=== PATIENT | male | born 1945 | race Caucasian/White ===

== ENCOUNTER 2019-01-04 21:23 | Inpatient (IN) | payer OTHER, BC ==
[2019-01-04 21:51] VITALS: BMI 33.2
[2019-01-04] MEDS ORDERED: SODIUM CHLORIDE 1,000 ML IV SCH (22:15)
--- NOTE | 2019-01-04 22:29 | PDOC ---
Documentation entered by Corona Sosa SCRIBE, acting as scribe for Cheyanne Lowery MD. Cheyanne Lowery MD: This documentation has been prepared by the Ian le Nirvannie, SCRIBE, under my direction and personally reviewed by me in its entirety. I confirm that the documentation accurately reflects all work, treatment, procedures, and medical decision making performed by me. Attending Attestation - Resident Resident Name: Johana Mcgregor - ED Attending Attestation I have performed the following: I have examined & evaluated the patient, The case was reviewed & discussed with the resident, I agree w/resident's findings & plan - HPI HPI: 01/04/19 21:54 The patient is a 73 year old male, with a significant past medical history of HTN and prostate CA, who presents to the emergency department s/p episode of LOC. As per patient, shortly after having an alcoholic beverage and eating half of his meal he began to feel lightheaded and nauseous subsequently losing consciousness. Patients notes he was immediately responsive to verbal stimuli but, was diaphoretic upon awakening. He endorses a similar episode approximately a week ago at which time he did not lose consciousness. He denies any chest pain, shortness of breath, palpitations, headache, change in strength/ sensation, focal weakness, or urinary/bowel incontinence. Allergies: NKDA Primary Care Physician: Dr. Kaiser - Physicial Exam PE: 01/04/19 22:20 Well-nourished well-developed 73-year-old male brought in by ambulance after a witnessed syncopal episode Head no scalp lacerations Eyes pupils equal reactive light and extraocular muscles intact Neck supple lungs cta b/l cvs [id number] abd nontender skin no lacerations neuro axox3, motor strength 5/5,b/l psych appropriate 01/04/19 22:30 - Medical Decision Making 01/05/19 00:00 First troponin is negative EKG is normal sinus rhythm with no signs of any acute ischemia CBCs unremarkable Chemistries were reviewed and his renal function and electrolytes and LFTs are unremarkable CPK is unusually high at about 1922 Patient has not had any repeat symptoms but given the fact that this is his second syncopal episode in the last 2 weeks and he has no prior cardiac work-up he will be admitted to telemetry for further cardiac monitoring ,echo, cardiology consult
--- NOTE | 2019-01-04 22:50 | PDOC ---
History of Present Illness - General Chief Complaint: Syncope/Near Syncope Stated Complaint: SYNCOPE Time Seen by Provider: 01/04/19 21:44 - History of Present Illness Initial Comments: 01/04/19 22:36 HPI: 73 y/o M with hx of HTN and HLD presenting following witnessed syncopal event 2hrs ago. Patient reports taking both his AM and PM amlodipine (5mg) dose around 6:30pm before going to dinner because he forgot his AM dose. At dinner, he started feeling LH and nausea. He attempted to go outside to get fresh air but syncopized before making it outside. LOC lasted only a few seconds per the . There was no head trauma, incontinence or tongue laceration. Patient denies any BETANCUR, chest pain, palpitations, SOB prior to syncope. noted that patient landed on his arm and there was a mild tremor and he was diaphoretic. Of note, patient notes he felt similar symptoms 1 week ago. [place] LH and nausea during dinner, but symptoms self resolved prior to syncope. He also reports left knee gout and severe discomfort and is unsure if significant pain may have caused this PMHx: as noted above ROS: as noted SHx: Denies tobacco use; occasional alcohol use; no rec drugs Allergies: NKDA PCP: Dr Kaiser ROS: GENERAL/CONSTITUTIONAL: No fever or chills. No weakness. HEAD, EYES, EARS, NOSE AND THROAT: No change in vision. No ear pain or discharge. No sore throat. CARDIOVASCULAR: No chest pain or shortness of breath RESPIRATORY: No cough, wheezing, or hemoptysis. GASTROINTESTINAL: +nausea; no vomiting, diarrhea or constipation. GENITOURINARY: No dysuria, frequency, or change in urination. MUSCULOSKELETAL: No joint or muscle swelling or pain. No neck or back pain. SKIN: No rash NEUROLOGIC: +LOC, LH; No headache, vertigo, or change in strength/sensation. ENDOCRINE: No increased thirst. No abnormal weight change HEMATOLOGIC/LYMPHATIC: No anemia, easy bleeding, or history of blood clots. ALLERGIC/IMMUNOLOGIC: No hives or skin allergy. PE: GENERAL: Awake, alert, and fully oriented, no acute distress HEAD: No signs of trauma, normocephalic, atraumatic EYES: EOMI, PERRLA, sclera anicteric, conjunctiva clear ENT: Auricles normal inspection, hearing grossly normal, nares patent, oropharynx clear without exudates. Moist mucosa NECK: Normal ROM, no lymphadenopathy LUNGS: No increased work of breathing, symmetrical chest rise, clear to auscultation bilaterally, no wheezes, crackles or rhonchi HEART: Regular rate and rhythm, normal S1 and S2, no murmurs, peripheral pulses 2+ and equal bilaterally. ABDOMEN: Soft, nondistended, nontender, normoactive bowel sounds. No guarding, no rebound. No masses. No CVAT EXTREMITIES: Normal inspection, Normal range of motion, no edema. No clubbing or cyanosis. NEUROLOGICAL: Cranial nerves II through XII grossly intact. Normal speech, normal gait, no focal sensorimotor deficits SKIN: Warm, Dry, normal turgor, no rashes or lesions noted Past History - Past Medical History Allergies/Adverse Reactions: Allergies Allergy/AdvReac Type Severity Reaction Status Date / Time No Known Allergies Allergy Verified 10/24/14 11:45 Home Medications: Ambulatory Orders Aspirin [ASA -] 81 mg PO DAILY 10/24/14 Cholecalciferol (Vitamin D3) [Vitamin D3] 1,000 units PO DAILY 10/24/14 Clindamycin [Cleocin -] 600 mg PO Q8H #30 capsule 10/24/14 Colesevelam HCl [Welchol] 625 mg PO DAILY 10/24/14 Multivitamin [Poly-Vitamin] 1 each PO DAILY 10/24/14 [place]-3 Fatty Acids/Fish Oil [Fish Oil 1,000 mg Softgel] 1 each PO DAILY Omeprazole 20 mg PO DAILY 10/24/14 Pramipexole Di-HCl [Mirapex] 1 mg PO BID 10/24/14 Ramipril 10 mg PO DAILY 10/24/14 Vitamin E 400 unit PO DAILY 10/24/14 COPD: No HTN: Yes - Psycho Social/Smoking Cessation Hx Smoking History: Never smoked Hx Alcohol Use: No Drug/Substance Use Hx: No *Physical Exam - Vital Signs Last Vital Signs Temp Pulse Resp BP Pulse Ox 97.9 F 17 108/58 L 96 01/04/19 21:30 01/04/19 21:30 01/04/19 21:30 01/04/19 21:30 ED Treatment Course - LABORATORY CBC & Chemistry Diagram: 01/04/19 22:30 01/04/19 22:30 Medical Decision Making - Medical Decision Making 01/04/19 22:50 73 y/o M with hx of HTN and HLD presenting following witnessed syncopal event 2hrs ago associated with LH and nausea. VSS, AF. Pe unremarkable. DDx includes ACS, arrhythmia, lyte imbalance, CVA/TIA, infection, hypoglycemia -cbc, cmp, cardiac profile, ua, coags, lipid panel, ekg, cxr, CT head, -ivf -admit to telemetry unit for further workup of syncope and recent presyncope symptoms Discharge - Discharge Information Problems reviewed: Yes Clinical Impression/Diagnosis: Syncope Qualifiers: Syncope type: unspecified Qualified Code(s): R55 - Syncope and collapse Condition: Stable - Admission Yes - Follow up/Referral Referrals: Jacob Kaiser MD [Primary Care Provider] - - Patient Discharge Instructions - Post Discharge Activity
[2019-01-04 22:56] LABS: BASO % 0.5 % (0-2.0); HEMATOCRIT 43.2 % (35.4-49); HEMOGLOBIN 14.3 GM/dL (11.7-16.9); LYMPH % 13.7 % (8-40); MCH 28.9 pg (25.7-33.7); MCHC 33.1 g/dl (32.0-35.9); MEAN CELL VOLUME 87.2 fl (80-96); MEAN PLT VOLUME 7.8 fl (7.5-11.1); MONO % 7.9 % (3.8-10.2); NEUT % 76.9 % (42.8-82.8); PLATELET COUNT 232 K/MM3 (134-434); RBC 4.95 M/mm3 (4.00-5.60); RDW 14.1 % (11.9-15.9); WHITE BLOOD COUNT 6.3 K/mm3 (4.0-10.0)
[2019-01-04 22:58] LABS: INR 0.97 (0.83-1.09); PROTHROMBIN TIME (PATIENT) 11.5 SEC (9.7-13.0)
[2019-01-04 23:00] LABS: ACTIVATED PTT 26.9 SECONDS (25.2-36.5)
[2019-01-04 23:27] LABS: BLOOD UREA NITROGEN 23.9 mg/dL (7-18); CREATININE 1.5 mg/dL (0.55-1.3); LDL CHOLESTEROL (ONLY SJRH) 119 mg/dL (5-100); TRIGLYCERIDES 251 mg/dL (0-150)
[2019-01-04 23:28] LABS: ALBUMIN 4.1 g/dl (3.4-5.0); BILIRUBIN,TOTAL 0.9 mg/dL (0.2-1); CALCIUM 9.7 mg/dL (8.5-10.1); POTASSIUM 3.9 mmol/L (3.5-5.1); TOT PROT 7.6 g/dl (6.4-8.2)
--- NOTE | 2019-01-05 | PDOC ---
*Physical Exam - Vital Signs Last Vital Signs Temp Pulse Resp BP Pulse Ox 97.9 F 17 108/58 L 96 01/04/19 21:30 01/04/19 21:30 01/04/19 21:30 01/04/19 21:30 ED Treatment Course - LABORATORY CBC & Chemistry Diagram: 01/05/19 05:30 01/05/19 05:30 - ADDITIONAL ORDERS Additional order review: Laboratory Results 01/04/19 01/04/19 01/04/19 22:30 22:30 22:30 PT with INR INR PTT (Actin FS) Sodium Potassium Chloride Carbon Dioxide Anion Gap BUN Creatinine Est GFR (CKD-EPI)AfAm Est GFR (CKD-EPI)NonAf Random Glucose Calcium Total Bilirubin AST ALT Alkaline Phosphatase Creatine Kinase Troponin I Total Protein Albumin Triglycerides 251 H Cholesterol Total LDL Cholesterol 119 H HDL Cholesterol 51 Blood Type O POSITIVE Antibody Screen Negative 01/04/19 01/04/19 01/04/19 22:30 22:30 22:30 PT with INR 11.50 INR 0.97 PTT (Actin FS) 26.9 Sodium 136 Potassium 3.9 Chloride 102 Carbon Dioxide 24 Anion Gap 10 BUN 23.9 H Creatinine 1.5 H Est GFR (CKD-EPI)AfAm 53.52 Est GFR (CKD-EPI)NonAf 46.17 Random Glucose 84 Calcium 9.7 Total Bilirubin 0.9 AST 67 H ALT 37 Alkaline Phosphatase 41 L Creatine Kinase 1922 H Troponin I < 0.02 Total Protein 7.6 Albumin 4.1 Triglycerides Cholesterol 201 H Total LDL Cholesterol HDL Cholesterol Blood Type Antibody Screen 01/04/19 22:30 RBC 4.95 MCV 87.2 MCHC 33.1 RDW 14.1 MPV 7.8 Neutrophils % 76.9 Lymphocytes % 13.7 Monocytes % 7.9 Eosinophils % 1.0 Basophils % 0.5 Medical Decision Making - Medical Decision Making 01/04/19 23:59 signed out from noon team - f/u CXR - f/u CT head - f/u labs - Admit tele 01/05/19 02:03 Orthostatics Supine: 104/60, HR 61 Sit: 102/63, HR 61 Standin/63, HR 67 01/05/19 02:09 Endorsed Admitted tele-obs Discharge - Discharge Information Problems reviewed: Yes Clinical Impression/Diagnosis: Syncope Qualifiers: Syncope type: unspecified Qualified Code(s): R55 - Syncope and collapse Condition: Stable - Follow up/Referral - Patient Discharge Instructions - Post Discharge Activity
[2019-01-05 00:54] LABS: INR 1.01 (0.83-1.09); PROTHROMBIN TIME (PATIENT) 11.9 SEC (9.7-13.0)
[2019-01-05] MEDS ORDERED: ACETAMINOPHEN 325 MG TABLET (FP) PO PRN (03:33)
[2019-01-05 04:15] LABS: URINE APPEARANCE CLEAR; URINE BILIRUBIN NEGATIVE (NEGATIVE); URINE COLOR YELLOW; URINE GLUCOSE (UA) NEGATIVE (NEGATIVE); URINE KETONE NEGATIVE (NEGATIVE); URINE LEUK ESTERASE NEGATIVE (NEGATIVE); URINE NITRITE NEGATIVE (NEGATIVE); URINE PROTEIN NEGATIVE (NEGATIVE); URINE UROBILINOGEN 0.2 mg/dL (0.2-1.0)
--- NOTE | 2019-01-05 04:15 | PN ---
Teaching Attending Note Name of Resident: Bessie Cordero ATTENDING PHYSICIAN STATEMENT I saw and evaluated the patient. I reviewed the resident's note and discussed the case with the resident. I agree with the resident's findings and plan as documented. SUBJECTIVE: Patient is a 73 year old man with a PMH of HTN, HLD, ?Calf myopathy with chronic CPK elevation, and Prostate cancer who presents to the ER after an episode of syncope with LOC. As per patient, shortly after having an alcoholic beverage and eating half of his meal he began to feel lightheaded and nauseous subsequently losing consciousness. Reportedly took an extra dose of his antihypertensive medication (?amlodipine). Patients notes he was immediately responsive to verbal stimuli but, was diaphoretic upon awakening. He had a similar episode approximately a week ago at which time he did not lose consciousness. He denies any chest pain, shortness of breath, palpitations, headache, change in strength/sensation, focal weakness, urinary or bowel incontinence. Denies tobacco or illicit drug use. No sick contacts or recent travel. OBJECTIVE: Alert and not orthostatic Vital Signs Period Temp Pulse Resp BP Sys/[place] Pulse Ox Last 24 Hr 97 F-97.9 F 17 108/58 96-96 HEENT: No Jaundice, eye redness or discharge, PERRLA, EOMI. Normocephalic, atraumatic. External ears are normal and hearing is grossly intact. No nasal discharge. Neck: Supple, nontender. No palpable adenopathy or thyromegaly. No JVD Chest: Good effort. Clear to auscultation and percussion. Heart: Regular. No S3, rub or murmur Abdomen: Not distended, soft, nontender and no HSM. No rebound or guarding. Normal bowel sounds. Ext: Peripheral pulses intact. No leg edema. Skin: Warm and dry. No petechiae, rash or ecchymosis. Neuro: Alert. Oriented x3. CN 2-12 grossly intact. Sensation grossly intact in all four extremities and DTR are symmetric. Psych: Appropriate mood and affect. Good insight. Current Medications Generic Name Dose Route Start Last Admin Trade Name Freq PRN Reason Stop Dose Admin Acetaminophen 650 mg 01/05/19 03:33 Tylenol - PO Q6H PRN PAIN LEVEL 1-5 Heparin Sodium (Porcine) 5,000 unit 01/05/19 10:00 Heparin - SQ Q8H-IV [facility] Sodium Chloride 1,000 mls @ 42 mls/hr 01/04/19 22:15 01/04/19 22:39 Normal Saline - IV 42 mls/hr ASDIR [facility] Administration Home Medications Medication Instructions Recorded Aspirin [ASA -] 81 mg PO DAILY 10/24/14 Cholecalciferol (Vitamin D3) 1,000 units PO DAILY 10/24/14 [Vitamin D3] Clindamycin [Cleocin -] 600 mg PO Q8H #30 capsule 10/24/14 Colesevelam HCl [Welchol] 625 mg PO DAILY 10/24/14 Multivitamin [Poly-Vitamin] 1 each PO DAILY 10/24/14 [place]-3 Fatty Acids/Fish Oil [Fish 1 each PO DAILY 10/24/14 Oil 1,000 mg Softgel] Omeprazole 20 mg PO DAILY 10/24/14 Pramipexole Di-HCl [Mirapex] 1 mg PO BID 10/24/14 Ramipril 10 mg PO DAILY 10/24/14 Vitamin E 400 unit PO DAILY 10/24/14 Abnormal Lab Results 01/04/19 01/04/19 01/04/19 22:30 22:30 22:30 BUN 23.9 H Creatinine 1.5 H AST 67 H Alkaline Phosphatase 41 L Creatine Kinase 1922 H CK-MB (CK-2) 36.0 H Triglycerides 251 H Cholesterol 201 H Total LDL Cholesterol 119 H ASSESSMENT AND PLAN: 1. Syncope - Cause unclear, but may be related to "over dosing" on his antihypertensive medication. No acute abnormality on head CT. CXR shows increased perihilar interstitial marking. EKG is NSR with no significant ST-T wave changes. Will monitor on telemetry, get ECHO, urine toxicology, blood alcohol level, carotid doppler, brain MRI/MRA, Neurology and Cardiology consults. Will continue comprehensive care for all of patients comorbid conditions. 2. NICOLA and ?Rhabdomyolysis - Cause unclear. Says he has had chronic elevated CPK. Will hydrate gently, monitor urine output, serum calcium and phosphate. Will consult nephrology and avoid nephrotoxic agents such as NSAIDS, aminoglycosides, contrast dyes and certain Alternative medicine products. 3. Obesity Counseled on the risks associated with obesity. Will provide patient all the necessary assistance, counseling and positive reinforcement to facilitate weight loss. Consult pipeline inspector. 4. Hypertension - Hold antihypertensive drugs for now. Restart suitable outpatient antihypertensive drugs when clinically appropriate. Revise regimen to ensure [id number] excellent BP control and drapery counselor patient on the injurious effects of uncontrolled hypertension. Nonpharmacologic measures to control hypertension like weight loss, salt restriction and exercise discussed. Importance of adherence to treatment regimen and attainment of normotension emphasized. 5. DVT prophylaxis - Heparin 5000u sq tid. 6. Advance directives - Full code
--- NOTE | 2019-01-05 05:25 | HP ---
CHIEF COMPLAINT: syncope PCP: Dr Kaiser HISTORY OF PRESENT ILLNESS: 73 year old male with past medical history of hypertension and hyperlipidemia presented to the ED after a syncopal episode yesterday. According to the patient , he only had a cup of coffee and banana for breakfast, one can of coke at lunch with a yogurt without any water intake.Furthermore, he forgot to take his AM 5mg amlodipine and decided to take his AM and PM dose of amlodipine (10mg total) at 6:30 pm before going out to dinner with his . At the restaurant, patient felt nauseous and lightheaded, and syncopized before being able to step out for fresh air. Pt also experienced diaphoresis and tremors prior to the episode. Per , patient lost consciousness for a few seconds but did not experience any head trauma, incontinence, tongue biting or post-ictal state. Pt denies headache, dizziness, chest pain, palpitations, change in vision, shortness of breath prior to the episode. Of note, pt had a similar episode last week without syncope. Pt has never seen a electronic security technician. No family history of sudden cardiac , arrhythmias or structural heart disease. Pt further endorsed history of abnormal CPK from calf muscles with a baseline around [id number]. lastly, he reports left knee gout flare recently managed with indomethacin. ER course was notable for: (1) non orthostatic VS, unremarkable CBC, CMP with elevated BUN/Cr 23.9/1.5, CPK 1922 ( per pt chronically elevated from calf muscles) (2)Head CT negative, trop neg x1, lipid panel trig 251, chol 201, LDL 119, HDL 51 (3) NS Recent Travel: denies PAST MEDICAL HISTORY: as above PAST SURGICAL HISTORY: prostatectomy 2/2 cancer 9 yrs ago Social History: Smoking:denies Alcohol: 2-3 drinks a week Drugs: denies Allergies No Known Allergies Allergy (Verified 10/24/14 11:45) HOME MEDICATIONS: Home Medications Medication Instructions Recorded Aspirin [ASA -] 81 mg PO DAILY 10/24/14 Cholecalciferol (Vitamin D3) 1,000 units PO DAILY 10/24/14 [Vitamin D3] Clindamycin [Cleocin -] 600 mg PO Q8H #30 capsule 10/24/14 Colesevelam HCl [Welchol] 625 mg PO DAILY 10/24/14 Multivitamin [Poly-Vitamin] 1 each PO DAILY 10/24/14 [place]-3 Fatty Acids/Fish Oil [Fish 1 each PO DAILY 10/24/14 Oil 1,000 mg Softgel] Omeprazole 20 mg PO DAILY 10/24/14 Pramipexole Di-HCl [Mirapex] 1 mg PO BID 10/24/14 Ramipril 10 mg PO DAILY 10/24/14 Vitamin E 400 unit PO DAILY 10/24/14 REVIEW OF SYSTEMS CONSTITUTIONAL: diaphoresis Absent: fever, chills, generalized weakness, malaise, loss of appetite, weight change HEENT: Absent: rhinorrhea, nasal congestion, throat pain, throat swelling, difficulty swallowing, mouth swelling, ear pain, eye pain, visual changes CARDIOVASCULAR: syncope Absent: chest pain, palpitations, irregular heart rate, , peripheral edema RESPIRATORY: lightheadedness Absent: cough, shortness of breath, dyspnea with exertion, orthopnea, wheezing, stridor, hemoptysis GASTROINTESTINAL: nausea Absent: abdominal pain, abdominal distension, vomiting, diarrhea, constipation, melena, hematochezia GENITOURINARY: Absent: dysuria, frequency, urgency, hesitancy, hematuria, flank pain, genital pain MUSCULOSKELETAL: Absent: myalgia, arthralgia, joint swelling, back pain, neck pain SKIN: Absent: rash, itching, pallor HEMATOLOGIC/IMMUNOLOGIC: Absent: easy bleeding, easy bruising, lymphadenopathy, frequent infections ENDOCRINE: Absent: unexplained weight gain, unexplained weight loss, heat intolerance, cold intolerance NEUROLOGIC: Absent: headache, focal weakness or paresthesias, dizziness, unsteady gait, seizure, mental status changes, bladder or bowel incontinence PSYCHIATRIC: Absent: anxiety, depression, suicidal or homicidal ideation, hallucinations. PHYSICAL EXAMINATION Vital Signs - 24 hr 01/04/19 01/05/19 21:30 03:33 Temperature 97.9 F 98.1 F Pulse Rate [ 65 Apical] Respiratory 17 18 Rate Blood Pressure 108/58 L Blood Pressure 116/46 L [Right] O2 Sat by Pulse 96 97 Oximetry (%) GENERAL: Awake, alert, and fully oriented, in no acute distress. HEAD: Normal with no signs of trauma. EYES: Pupils equal, round and reactive to light, extraocular movements intact, sclera anicteric, conjunctiva clear. No lid lag. EARS, NOSE, THROAT: oropharynx clear without exudates. Moist mucous membranes. NECK: Normal range of motion, supple without lymphadenopathy, JVD, or masses. LUNGS: Breath sounds equal, clear to auscultation bilaterally. No wheezes, and no crackles. No accessory muscle use. HEART: Regular rate and rhythm, normal S1 and S2 without murmur, rub or gallop. ABDOMEN: Soft, nontender, not distended, normoactive bowel sounds, no guarding, no rebound, no masses. No hepatomegaly or splenomegaly. MUSCULOSKELETAL: Normal range of motion at all joints. No bony deformities or tenderness. No CVA tenderness. UPPER EXTREMITIES: 2+ pulses, warm, well-perfused. No cyanosis. No clubbing. No peripheral edema. LOWER EXTREMITIES: 2+ pulses, warm, well-perfused. No calf tenderness. No peripheral edema. NEUROLOGICAL: Cranial nerves II-XII intact. Normal speech. PSYCHIATRIC: Cooperative. Good eye contact. Appropriate mood and affect. SKIN: Warm, dry, normal turgor, no rashes or lesions noted, normal capillary refill. Laboratory Results - last 24 hr 01/04/19 01/04/19 01/04/19 22:30 22:30 22:30 WBC 6.3 RBC 4.95 Hgb 14.3 Hct 43.2 MCV 87.2 MCH 28.9 MCHC 33.1 RDW 14.1 Plt Count 232 MPV 7.8 Absolute Neuts (auto) 4.8 Neutrophils % 76.9 Lymphocytes % 13.7 Monocytes % 7.9 Eosinophils % 1.0 Basophils % 0.5 Nucleated RBC % 0 PT with INR 11.50 INR 0.97 PTT (Actin FS) 26.9 Sodium Potassium Chloride Carbon Dioxide Anion Gap BUN Creatinine Est GFR (CKD-EPI)AfAm Est GFR (CKD-EPI)NonAf Random Glucose Calcium Total Bilirubin AST ALT Alkaline Phosphatase Creatine Kinase 1922 H Creatine Kinase Index 1.8 CK-MB (CK-2) 36.0 H Troponin I < 0.02 Total Protein Albumin Triglycerides Cholesterol Total LDL Cholesterol HDL Cholesterol Urine Color Urine Appearance Urine pH Ur Specific [place] Urine Protein Urine Glucose (UA) Urine Ketones Urine Blood Urine Nitrite Urine Bilirubin Urine Urobilinogen Ur Leukocyte Esterase Blood Type Antibody Screen 01/04/19 01/04/19 01/04/19 22:30 22:30 22:30 WBC RBC Hgb Hct MCV MCH MCHC RDW Plt Count MPV Absolute Neuts (auto) Neutrophils % Lymphocytes % Monocytes % Eosinophils % Basophils % Nucleated RBC % PT with INR INR PTT (Actin FS) Sodium 136 Potassium 3.9 Chloride 102 Carbon Dioxide 24 Anion Gap 10 BUN 23.9 H Creatinine 1.5 H Est GFR (CKD-EPI)AfAm 53.52 Est GFR (CKD-EPI)NonAf 46.17 Random Glucose 84 Calcium 9.7 Total Bilirubin 0.9 AST 67 H ALT 37 Alkaline Phosphatase 41 L Creatine Kinase Creatine Kinase Index CK-MB (CK-2) Troponin I Total Protein 7.6 Albumin 4.1 Triglycerides 251 H Cholesterol 201 H Total LDL Cholesterol 119 H HDL Cholesterol 51 Urine Color Urine Appearance Urine pH Ur Specific [place] Urine Protein Urine Glucose (UA) Urine Ketones Urine Blood Urine Nitrite Urine Bilirubin Urine Urobilinogen Ur Leukocyte Esterase Blood Type Antibody Screen 01/04/19 01/05/19 01/05/19 22:30 00:28 03:50 WBC RBC Hgb Hct MCV MCH MCHC RDW Plt Count MPV Absolute Neuts (auto) Neutrophils % Lymphocytes % Monocytes % Eosinophils % Basophils % Nucleated RBC % PT with INR 11.90 INR 1.01 PTT (Actin FS) Sodium Potassium Chloride Carbon Dioxide Anion Gap BUN Creatinine Est GFR (CKD-EPI)AfAm Est GFR (CKD-EPI)NonAf Random Glucose Calcium Total Bilirubin AST ALT Alkaline Phosphatase Creatine Kinase Creatine Kinase Index CK-MB (CK-2) Troponin I Total Protein Albumin Triglycerides Cholesterol Total LDL Cholesterol HDL Cholesterol Urine Color Yellow Urine Appearance Clear Urine pH 5.0 Ur Specific [place] 1.016 Urine Protein Negative Urine Glucose (UA) Negative Urine Ketones Negative Urine Blood Negative Urine Nitrite Negative Urine Bilirubin Negative Urine Urobilinogen 0.2 Ur Leukocyte Esterase Negative Blood Type O POSITIVE Antibody Screen Negative ASSESSMENT/PLAN: 73 year old male with past medical history of hypertension and hyperlipidemia presented to the ED after a syncopal episode yesterday. Admitted for Syncope workup Syncope poss due to poor oral intake and double dose of norvasc? cannot r/o other cardiac/neuro etiologies admit to tele cardiac monitoring Negative orthostatics Supine: 104/60, HR 61 Sit: 102/63, HR 61 Standin/63, HR 67 EKG normal sinus rhythm no ST-T wave changes. repeat EKG to check for interval changes trop neg x1. pending repeat echocardiogram for cardiac function assessment cardio Dr Tony consulted as pt never been assess by cardiology lipid panel abnormal as noted above Carotid doppler US MRI of the brain if Neuro recommends Neuro Dr Childers consulted Fall precautions NS @100 cc/hr Utox and alcohol level NICOLA poss due to recent indomethacin use or increased in CPK BUN/Cr 23.9/ 1.5 UA negative CPK 1921. Pt endorse Pt receiving NS @100. F/u CPK in the morning cont adequate hydration to prevent further injury monitor urine output avoid nephrotoxic drugs HTN resume when appropriate and med rec HLD Avoid statins Pt had myositis after administration in the past chronic elevated CPK cont home Welchol once med rec FEN NS @ 100 salt controlled diet monitor lytes DVT hep subQ Visit type - Emergency Visit Emergency Visit: Yes ED Registration Date: 01/05/19 Care time: The patient presented to the Emergency Department on the above date and was hospitalized for further evaluation of their emergent condition. - New Patient This patient is new to me today: Yes Date on this admission: 01/05/19 - Critical Care Critical Care patient: No ATTENDING PHYSICIAN STATEMENT I saw and evaluated the patient. I reviewed the resident's note and discussed the case with the resident. I agree with the resident's findings and plan as documented. SUBJECTIVE: OBJECTIVE: ASSESSMENT AND PLAN:
[2019-01-05] MEDS ORDERED: SODIUM CHLORIDE 1,000 ML IV SCH (05:30)
[2019-01-05] MEDS ORDERED: HEPARIN NA (PORCINE) 5,000 UNITS/ML 1ML VIAL ONE (05:48)
[2019-01-05] MEDS ORDERED: HEPARIN NA (PORCINE) 5,000 UNITS/ML 1ML VIAL SQ SCH (06:00)
[2019-01-05 06:03] LABS: BASO % 0.6 % (0-2.0); EOS % 2.4 % (0-4.5); HEMATOCRIT 38.6 % (35.4-49); HEMOGLOBIN 13.1 GM/dL (11.7-16.9); LYMPH % 24.6 % (8-40); MCH 29.3 pg (25.7-33.7); MCHC 33.9 g/dl (32.0-35.9); MEAN CELL VOLUME 86.5 fl (80-96); MEAN PLT VOLUME 7.3 fl (7.5-11.1); MONO % 10.6 % (3.8-10.2); NEUT % 61.8 % (42.8-82.8); PLATELET COUNT 206 K/MM3 (134-434); RBC 4.46 M/mm3 (4.00-5.60); RDW 13.8 % (11.9-15.9); WHITE BLOOD COUNT 4.9 K/mm3 (4.0-10.0)
[2019-01-05 06:36] LABS: ALBUMIN 3.5 g/dl (3.4-5.0); ALK PHOS 36 U/L (45-117); ANION GAP 7 MMOL/L (8-16); BILIRUBIN,TOTAL 0.8 mg/dL (0.2-1); BLOOD UREA NITROGEN 23.6 mg/dL (7-18); CALCIUM 8.7 mg/dL (8.5-10.1); CHLORIDE 106 mmol/L (98-107); CO2 24 mmol/L (21-32); CREATININE 1.3 mg/dL (0.55-1.3); GLUCOSE,RANDOM 93 mg/dL (74-106); MAGNESIUM 2.2 mg/dL (1.8-2.4); POTASSIUM 3.8 mmol/L (3.5-5.1); SGOT/AST 48 U/L (15-37); SGPT/ALT 30 U/L (13-61); SODIUM 136 mmol/L (136-145); TOT PROT 6.4 g/dl (6.4-8.2)
[2019-01-05 07:00] LABS: COCAINE, UR NEGATIVE ng/ml (CUTOFF=300); METHADONE, UR NEGATIVE ng/ml (CUTOFF=300); OPIATES, URI NEGATIVE ng/ml (CUTOFF=300); PHENCYCLIDINE,URINE NEGATIVE ng/ml (CUTOFF=25); URINE AMPHETAMINES NEGATIVE ng/ml (CUTOFF=500); URINE BARBITURATES NEGATIVE ng/ml (CUTOFF=200); URINE BENZODIAZEPINES NEGATIVE ng/ml (CUTOFF=200)
--- NOTE | 2019-01-05 09:36 | CONSULT ---
Consult - text type - Consultation Consultation Note: Neurology CHIEF COMPLAINT: syncope PCP: Dr Kaiser HISTORY OF PRESENT ILLNESS: 73 year old male with past medical history of hypertension and hyperlipidemia presented to the ED after a syncopal episode the day prior to admission. According to the patient, he only had a cup of coffee and banana for breakfast, one can of coke at lunch with a yogurt without any water intake.Furthermore, he forgot to take his AM 5mg amlodipine and decided to take his AM dose at nighttime. Notes in chart indicate double dose at night but the patient informed me that he had only taken 5 mg dose at bedtimeand did not double up on the medication. Patient reportedly felt nauseous and lightheaded, and syncopized before being able to step out for fresh air. Pt also experienced diaphoresis and tremors prior to the episode. reportedly, patient lost consciousness for a few seconds but did not experience any head trauma, incontinence, tongue biting or post-ictal state. Pt denies headache, dizziness, chest pain, palpitations, change in vision, shortness of breath prior to the episode. Of note, pt had a similar episode last week without syncope. Pt has never seen a workplace rehabilitation officer. No family history of sudden cardiac , arrhythmias or structural heart disease. Pt further endorsed history of abnormal CPK from calf muscles with a baseline around [id number]. lastly, he reports left knee gout flare recently managed with indomethacin. CT head was completed and without any acute changes. Neurologically, without any focal deficits and reports that he is asymptomatic at this point and at baseline. Recent Travel: denies PAST MEDICAL HISTORY: as above PAST SURGICAL HISTORY: prostatectomy 2/2 cancer 9 yrs ago Social History: Smoking:denies Alcohol: 2-3 drinks a week Drugs: denies Family; HTN Allergies No Known Allergies Allergy (Verified 10/24/14 11:45) HOME MEDICATIONS: Home Medications Medication Instructions Recorded Aspirin [ASA -] 81 mg PO DAILY 10/24/14 Cholecalciferol (Vitamin D3) 1,000 units PO DAILY 10/24/14 [Vitamin D3] Clindamycin [Cleocin -] 600 mg PO Q8H #30 capsule 10/24/14 Colesevelam HCl [Welchol] 625 mg PO DAILY 10/24/14 Multivitamin [Poly-Vitamin] 1 each PO DAILY 10/24/14 [place]-3 Fatty Acids/Fish Oil [Fish 1 each PO DAILY 10/24/14 Oil 1,000 mg Softgel] Omeprazole 20 mg PO DAILY 10/24/14 Pramipexole Di-HCl [Mirapex] 1 mg PO BID 10/24/14 Ramipril 10 mg PO DAILY 10/24/14 Vitamin E 400 unit PO DAILY 10/24/14 REVIEW OF SYSTEMS CONSTITUTIONAL: diaphoresis Absent: fever, chills, generalized weakness, malaise, loss of appetite, weight change HEENT: Absent: rhinorrhea, nasal congestion, throat pain, throat swelling, difficulty swallowing, mouth swelling, ear pain, eye pain, visual changes CARDIOVASCULAR: syncope Absent: chest pain, palpitations, irregular heart rate, , peripheral edema RESPIRATORY: lightheadedness Absent: cough, shortness of breath, dyspnea with exertion, orthopnea, wheezing, stridor, hemoptysis GASTROINTESTINAL: nausea Absent: abdominal pain, abdominal distension, vomiting, diarrhea, constipation, melena, hematochezia GENITOURINARY: Absent: dysuria, frequency, urgency, hesitancy, hematuria, flank pain, genital pain MUSCULOSKELETAL: Absent: myalgia, arthralgia, joint swelling, back pain, neck pain SKIN: Absent: rash, itching, pallor HEMATOLOGIC/IMMUNOLOGIC: Absent: easy bleeding, easy bruising, lymphadenopathy, frequent infections ENDOCRINE: Absent: unexplained weight gain, unexplained weight loss, heat intolerance, cold intolerance NEUROLOGIC: Absent: headache, focal weakness or paresthesias, dizziness, unsteady gait, seizure, mental status changes, bladder or bowel incontinence PSYCHIATRIC: Absent: anxiety, depression, suicidal or homicidal ideation, hallucinations. PHYSICAL EXAMINATION Vital Signs Period Temp Pulse Resp BP Sys/Majano Pulse Ox Last 24 Hr 97 F-98.1 F 65-75 15-18 108-143/46-82 96-99 GENERAL: Awake, alert, and fully oriented, in no acute distress. HEAD: Normal with no signs of trauma. EYES: Pupils equal, round and reactive to light, extraocular movements intact, sclera anicteric, conjunctiva clear. No lid lag. EARS, NOSE, THROAT: oropharynx clear without exudates. Moist mucous membranes. NECK: Normal range of motion, supple without lymphadenopathy, JVD, or masses. LUNGS: Breath sounds equal, clear to auscultation bilaterally. No wheezes, and no crackles. No accessory muscle use. HEART: Regular rate and rhythm, normal S1 and S2 without murmur, rub or gallop. ABDOMEN: Soft, nontender, not distended, normoactive bowel sounds, no guarding, no rebound, no masses. No hepatomegaly or splenomegaly. MUSCULOSKELETAL: Normal range of motion at all joints. No bony deformities or tenderness. No CVA tenderness. UPPER EXTREMITIES: 2+ pulses, warm, well-perfused. No cyanosis. No clubbing. No peripheral edema. LOWER EXTREMITIES: 2+ pulses, warm, well-perfused. No calf tenderness. No peripheral edema. NEUROLOGICAL: Cranial nerves II-XII intact. Normal speech. strength equal and symmetric bilaterally in upper and lower extremities, sensory intact, finger to nose normal PSYCHIATRIC: Cooperative. Good eye contact. Appropriate mood and affect. SKIN: Warm, dry, normal turgor, no rashes or lesions noted, normal capillary refill. CBCD WBC 4.9 K/mm3 (4.0-10.0) 01/05/19 05:30 RBC 4.46 M/mm3 (4.00-5.60) 01/05/19 05:30 Hgb 13.1 GM/dL (11.7-16.9) 01/05/19 05:30 Hct 38.6 % (35.4-49) 01/05/19 05:30 MCV 86.5 fl (80-96) 01/05/19 05:30 MCHC 33.9 g/dl (32.0-35.9) 01/05/19 05:30 RDW 13.8 % (11.9-15.9) 01/05/19 05:30 Plt Count 206 K/MM3 (134-434) 01/05/19 05:30 MPV 7.3 fl (7.5-11.1) L 01/05/19 05:30 CMP Sodium 136 mmol/L (136-145) 01/05/19 05:30 Potassium 3.8 mmol/L (3.5-5.1) 01/05/19 05:30 Chloride 106 mmol/L (98-107) 01/05/19 05:30 Carbon Dioxide 24 mmol/L (21-32) 01/05/19 05:30 Anion Gap 7 MMOL/L (8-16) L 01/05/19 05:30 BUN 23.6 mg/dL (7-18) H 01/05/19 05:30 Creatinine 1.3 mg/dL (0.55-1.3) 01/05/19 05:30 Random Glucose 93 mg/dL (74-106) 01/05/19 05:30 Calcium 8.7 mg/dL (8.5-10.1) 01/05/19 05:30 Total Bilirubin 0.8 mg/dL (0.2-1) 01/05/19 05:30 AST 48 U/L (15-37) H 01/05/19 05:30 ALT 30 U/L (13-61) 01/05/19 05:30 Alkaline Phosphatase 36 U/L (45-117) L 01/05/19 05:30 Total Protein 6.4 g/dl (6.4-8.2) 01/05/19 05:30 Albumin 3.5 g/dl (3.4-5.0) 01/05/19 05:30 CARDIAC ENZYMES Creatine Kinase 1922 U/L (26-308) H 01/04/19 22:30 Troponin I < 0.02 ng/ml (0.00-0.05) 01/05/19 05:30 ASSESSMENT/PLAN: 73 year old male with past medical history of hypertension and hyperlipidemia presented to the ED after a syncopal episode the day prior to admission. According to the patient, he only had a cup of coffee and banana for breakfast, one can of coke at lunch with a yogurt without any water intake.Furthermore, he forgot to take his AM 5mg amlodipine and decided to take his AM dose at nighttime. Notes in chart indicate double dose at night but the patient informed me that he had only taken 5 mg dose at bedtimeand did not double up on the medication. Patient reportedly felt nauseous and lightheaded, and syncopized before being able to step out for fresh air. Pt also experienced diaphoresis and tremors prior to the episode. reportedly, patient lost consciousness for a few seconds but did not experience any head trauma, incontinence, tongue biting or post-ictal state. Pt denies headache, dizziness, chest pain, palpitations, change in vision, shortness of breath prior to the episode. Of note, pt had a similar episode last week without syncope. Pt has never seen a workplace rehabilitation officer. No family history of sudden cardiac , arrhythmias or structural heart disease. Pt further endorsed history of abnormal CPK from calf muscles with a baseline around [id number]. lastly, he reports left knee gout flare recently managed with indomethacin. CT head was completed and without any acute changes. Neurologically, without any focal deficits and reports that he is asymptomatic at this point and at baseline. Does not rrequire MRI of the brain or further imaging at this time, completed carotid Dopplers this a.m. and should follow-up results. Cardiology eval and optimization, monitor blood pressure and maintain normotensive range. Monitor lipid profile and maintain normal LDL. Adequate hydration recommended.
--- NOTE | 2019-01-05 09:48 | EKG ---
Test Reason : Blood Pressure : / mmHG Vent. Rate : 061 BPM Atrial Rate : 061 BPM P-R Int : 160 ms QRS Dur : 094 ms QT Int : 440 ms P-R-T Axes : 051 046 066 degrees QTc Int : 442 ms NORMAL SINUS RHYTHM NORMAL ECG WHEN COMPARED WITH ECG OF 04-JAN-2019 21:41, NO SIGNIFICANT CHANGE WAS FOUND Confirmed by MD CANDACE, AMPARO ([id number]) on 01/05/2019 9:48:36 AM Referred By: Confirmed By:AMPARO MARIA MD
--- NOTE | 2019-01-05 09:52 | EKG ---
Test Reason : Blood Pressure : / mmHG Vent. Rate : 074 BPM Atrial Rate : 074 BPM P-R Int : 166 ms QRS Dur : 088 ms QT Int : 394 ms P-R-T Axes : 026 043 055 degrees QTc Int : 437 ms POOR DATA QUALITY, INTERPRETATION MAY BE ADVERSELY AFFECTED NORMAL SINUS RHYTHM NORMAL ECG NO PREVIOUS ECGS AVAILABLE Confirmed by MD CANDACE, AMPARO ([id number]) on 01/05/2019 9:52:14 AM Referred By: Confirmed By:AMPARO MARIA MD
[2019-01-05] MEDS ORDERED: amLODIPine BESYLATE 5 MG TABLET (FP) PO SCH (10:00)
[2019-01-05] MEDS ORDERED: CHOLECALCIFEROL (VIT D3) 1,000 UNIT (25 MCG) TABLET PO SCH (10:00)
[2019-01-05] MEDS ORDERED: ASPIRIN 81 MG CHEWABLE TABLETS PO SCH (10:00)
[2019-01-05] MEDS ORDERED: ALLOPURINOL 300 MG TABLET (FP) PO SCH (10:00)
[2019-01-05] MEDS ORDERED: ASPIRIN 81 MG CHEWABLE TABLETS ONE (10:08)
[2019-01-05] MEDS ORDERED: amLODIPine BESYLATE 5 MG TABLET (FP) ONE (10:08)
[2019-01-05] MEDS ORDERED: ALLOPURINOL 100 MG TABLET (FP) ONE (10:10)
--- NOTE | 2019-01-05 10:44 | ECHO ---
Version: 1 Name: RITU RÍOS Exam: Adult Echocardiogram Study Date: 01/05/2019, 9:42 AM Age: 73 Years MMode/2D Measurements & Calculations IVSd: 0.98 cm LVIDs: 2.45 cm LVIDd: 4.4 cm LVPWd: 0.98 cm LAV (MOD-bp): 49.5 ml LVOT diam: 1.98 cm Ao root diam: 3.1 cm LA dimension: 3.3 cm Doppler Measurements & Calculations MV E max cristobal: 74.7 cm/sec Med E/e': 11.4 MV A max cristobal: 74.2 cm/sec Med Peak E' Cristobal: 6.5 cm/sec MV E/A: 1.01 Lat E/e': 8.4 Lat Peak E' Cristobal: 8.9 cm/sec Ao max P.5 mmHg Ao V2 max: 137.2 cm/sec AI P1/2t: 654.9 msec TR max cristobal: 274.9 cm/sec TR max P.2 mmHg Left Ventricle The left ventricular size, thickness and function are normal. Ejection Fraction = 65%. The transmitr al spectral Doppler flow pattern is normal for age. Right Ventricle The right ventricle is normal in size and function. Atria Normal left and right atrial size and function. Mitral Valve The mitral valve is normal in structure and function. There is trace mitral regurgitation. Tricuspid Valve The tricuspid valve is normal in structure and function. There is trace tricuspid regurgitation. Aortic Valve The aortic valve is normal in structure and function. Mild aortic regurgitation. Pulmonic Valve The pulmonic valve is not well seen, but is grossly normal. Mild pulmonic valvular regurgitation. Great Vessels The aortic root is normal size. Normal aortic arch, descending and ascending aorta. Pericardium/Pleura There is no pericardial effusion. Summary Statements The left ventricular size, thickness and function are normal Ejection Fraction = 65%. The transmitral spectral Doppler flow pattern is normal for age. The right ventricle is normal in size and function. Normal left and right atrial size and function. The mitral valve is normal in structure and function. There is trace mitral regurgitation. The tricuspid valve is normal in structure and function. There is trace tricuspid regurgitation. The aortic valve is normal in structure and function. Mild aortic regurgitation. The pulmonic valve is not well seen, but is grossly normal. Mild pulmonic valvular regurgitation. The aortic root is normal size. Normal aortic arch, descending and ascending aorta There is no pericardial effusion. Gio Chavez 01/05/2019, 10:44 AM Ordering Physician: Bessie Cordero Performed By: Sujata Scott
[2019-01-05 11:53] VITALS: BP 136/78; PULSE 67; TEMP 97.2
--- NOTE | 2019-01-05 13:31 | PN ---
Teaching Attending Note Name of Resident: Amna Blank ATTENDING PHYSICIAN STATEMENT I saw and evaluated the patient. I reviewed the resident's note and discussed the case with the resident. I agree with the resident's findings and plan as documented with exceptions below. SUBJECTIVE: Patient seen and examined, no complaints, doing well, eager to go home. OBJECTIVE: Vital Signs Period Temp Pulse Resp BP Sys/Majano Pulse Ox Last 24 Hr 97 F-98.1 F 65-75 15-18 108-143/46-82 96-99 Intake & Output 01/02/19 01/03/19 01/04/19 01/05/19 23:59 23:59 23:59 23:59 Weight 206 lb 206 lb General: sitting in bed, no acute distress neck: soft supple, no carotid bruit appreciated Abdomen:Soft, obese, NT Extremities: no edema Neuro: AAOx3, ambulating freely, no gait abnormalities, EOMI, PERRL, facial symmetry, tongue midline, speech normal cranial nerves II-XII intact Home Medications Medication Instructions Recorded Aspirin [ASA -] 81 mg PO DAILY 10/24/14 Cholecalciferol (Vitamin D3) 1,000 units PO DAILY 10/24/14 [Vitamin D3] Colesevelam HCl [Welchol] 625 mg PO DAILY 10/24/14 Multivitamin [Poly-Vitamin] 1 each PO DAILY 10/24/14 [place]-3 Fatty Acids/Fish Oil [Fish 1 each PO DAILY 10/24/14 Oil 1,000 mg Softgel] Omeprazole 20 mg PO DAILY 10/24/14 Pramipexole Di-HCl [Mirapex] 1 mg PO TID 10/24/14 Vitamin E 400 unit PO DAILY 10/24/14 Allopurinol 300 mg PO DAILY 01/05/19 Amlodipine Besylate 5 mg PO DAILY 01/05/19 Active Medications Acetaminophen (Tylenol -) 650 mg PO Q6H PRN PRN Reason: PAIN LEVEL 1-5 Allopurinol (Zyloprim -) 300 mg PO DAILY [facility] Last Admin: 01/05/19 10:22 Dose: 300 mg Amlodipine Besylate (Norvasc -) 5 mg PO DAILY [facility] Last Admin: 01/05/19 10:22 Dose: 5 mg Aspirin (Asa -) 81 mg PO DAILY [facility] Last Admin: 01/05/19 10:22 Dose: 81 mg Atorvastatin Calcium (Lipitor -) 20 mg PO HS [facility] Cholecalciferol (Vitamin D3 -) 1,000 unit PO DAILY [facility] Heparin Sodium (Porcine) (Heparin -) 5,000 unit SQ TID [facility] Last Admin: 01/05/19 05:53 Dose: 5,000 unit Laboratory Results - last 24 hr 01/04/19 01/04/19 01/04/19 22:30 22:30 22:30 WBC 6.3 RBC 4.95 Hgb 14.3 Hct 43.2 MCV 87.2 MCH 28.9 MCHC 33.1 RDW 14.1 Plt Count 232 MPV 7.8 Absolute Neuts (auto) 4.8 Neutrophils % 76.9 Lymphocytes % 13.7 Monocytes % 7.9 Eosinophils % 1.0 Basophils % 0.5 Nucleated RBC % 0 PT with INR 11.50 INR 0.97 PTT (Actin FS) 26.9 Sodium Potassium Chloride Carbon Dioxide Anion Gap BUN Creatinine Est GFR (CKD-EPI)AfAm Est GFR (CKD-EPI)NonAf Random Glucose Hemoglobin A1c % Calcium Phosphorus Magnesium Total Bilirubin AST ALT Alkaline Phosphatase Creatine Kinase 1922 H Creatine Kinase Index 1.8 CK-MB (CK-2) 36.0 H Troponin I < 0.02 Total Protein Albumin Triglycerides Cholesterol Total LDL Cholesterol HDL Cholesterol TSH Urine Color Urine Appearance Urine pH Ur Specific [place] Urine Protein Urine Glucose (UA) Urine Ketones Urine Blood Urine Nitrite Urine Bilirubin Urine Urobilinogen Ur Leukocyte Esterase Opiates Screen Methadone Screen Barbiturate Screen Phencyclidine Screen Ur Amphetamines Screen MDMA (Ecstasy) Screen Benzodiazepines Screen Cocaine Screen U Marijuana (THC) Screen Alcohol, Quantitative Blood Type Antibody Screen 01/04/19 01/04/19 01/04/19 22:30 22:30 22:30 WBC RBC Hgb Hct MCV MCH MCHC RDW Plt Count MPV Absolute Neuts (auto) Neutrophils % Lymphocytes % Monocytes % Eosinophils % Basophils % Nucleated RBC % PT with INR INR PTT (Actin FS) Sodium 136 Potassium 3.9 Chloride 102 Carbon Dioxide 24 Anion Gap 10 BUN 23.9 H Creatinine 1.5 H Est GFR (CKD-EPI)AfAm 53.52 Est GFR (CKD-EPI)NonAf 46.17 Random Glucose 84 Hemoglobin A1c % Calcium 9.7 Phosphorus Magnesium Total Bilirubin 0.9 AST 67 H ALT 37 Alkaline Phosphatase 41 L Creatine Kinase Creatine Kinase Index CK-MB (CK-2) Troponin I Total Protein 7.6 Albumin 4.1 Triglycerides 251 H Cholesterol 201 H Total LDL Cholesterol 119 H HDL Cholesterol 51 TSH Urine Color Urine Appearance Urine pH Ur Specific [place] Urine Protein Urine Glucose (UA) Urine Ketones Urine Blood Urine Nitrite Urine Bilirubin Urine Urobilinogen Ur Leukocyte Esterase Opiates Screen Methadone Screen Barbiturate Screen Phencyclidine Screen Ur Amphetamines Screen MDMA (Ecstasy) Screen Benzodiazepines Screen Cocaine Screen U Marijuana (THC) Screen Alcohol, Quantitative Blood Type Antibody Screen 01/04/19 01/05/19 01/05/19 22:30 00:28 03:50 WBC RBC Hgb Hct MCV MCH MCHC RDW Plt Count MPV Absolute Neuts (auto) Neutrophils % Lymphocytes % Monocytes % Eosinophils % Basophils % Nucleated RBC % PT with INR 11.90 INR 1.01 PTT (Actin FS) Sodium Potassium Chloride Carbon Dioxide Anion Gap BUN Creatinine Est GFR (CKD-EPI)AfAm Est GFR (CKD-EPI)NonAf Random Glucose Hemoglobin A1c % Calcium Phosphorus Magnesium Total Bilirubin AST ALT Alkaline Phosphatase Creatine Kinase Creatine Kinase Index CK-MB (CK-2) Troponin I Total Protein Albumin Triglycerides Cholesterol Total LDL Cholesterol HDL Cholesterol TSH Urine Color Yellow Urine Appearance Clear Urine pH 5.0 Ur Specific [place] 1.016 Urine Protein Negative Urine Glucose (UA) Negative Urine Ketones Negative Urine Blood Negative Urine Nitrite Negative Urine Bilirubin Negative Urine Urobilinogen 0.2 Ur Leukocyte Esterase Negative Opiates Screen Methadone Screen Barbiturate Screen Phencyclidine Screen Ur Amphetamines Screen MDMA (Ecstasy) Screen Benzodiazepines Screen Cocaine Screen U Marijuana (THC) Screen Alcohol, Quantitative Blood Type O POSITIVE Antibody Screen Negative 01/05/19 01/05/19 01/05/19 05:30 05:30 05:30 WBC 4.9 RBC 4.46 Hgb 13.1 Hct 38.6 MCV 86.5 MCH 29.3 MCHC 33.9 RDW 13.8 Plt Count 206 MPV 7.3 L Absolute Neuts (auto) 3.0 Neutrophils % 61.8 Lymphocytes % 24.6 D Monocytes % 10.6 H Eosinophils % 2.4 D Basophils % 0.6 Nucleated RBC % 0 PT with INR INR PTT (Actin FS) Sodium 136 Potassium 3.8 Chloride 106 Carbon Dioxide 24 Anion Gap 7 L BUN 23.6 H Creatinine 1.3 Est GFR (CKD-EPI)AfAm 63.62 Est GFR (CKD-EPI)NonAf 54.90 Random Glucose 93 Hemoglobin A1c % 5.6 Calcium 8.7 Phosphorus 4.0 Magnesium 2.2 Total Bilirubin 0.8 AST 48 H ALT 30 Alkaline Phosphatase 36 L Creatine Kinase 1436 H Creatine Kinase Index 1.8 CK-MB (CK-2) 26.0 H Troponin I < 0.02 Total Protein 6.4 Albumin 3.5 Triglycerides Cholesterol Total LDL Cholesterol HDL Cholesterol TSH 2.15 Urine Color Urine Appearance Urine pH Ur Specific [place] Urine Protein Urine Glucose (UA) Urine Ketones Urine Blood Urine Nitrite Urine Bilirubin Urine Urobilinogen Ur Leukocyte Esterase Opiates Screen Methadone Screen Barbiturate Screen Phencyclidine Screen Ur Amphetamines Screen MDMA (Ecstasy) Screen Benzodiazepines Screen Cocaine Screen U Marijuana (THC) Screen Alcohol, Quantitative Blood Type Antibody Screen 01/05/19 01/05/19 05:30 06:07 WBC RBC Hgb Hct MCV MCH MCHC RDW Plt Count MPV Absolute Neuts (auto) Neutrophils % Lymphocytes % Monocytes % Eosinophils % Basophils % Nucleated RBC % PT with INR INR PTT (Actin FS) Sodium Potassium Chloride Carbon Dioxide Anion Gap BUN Creatinine Est GFR (CKD-EPI)AfAm Est GFR (CKD-EPI)NonAf Random Glucose Hemoglobin A1c % Calcium Phosphorus Magnesium Total Bilirubin AST ALT Alkaline Phosphatase Creatine Kinase Creatine Kinase Index CK-MB (CK-2) Troponin I Total Protein Albumin Triglycerides Cholesterol Total LDL Cholesterol HDL Cholesterol TSH Urine Color Urine Appearance Urine pH Ur Specific [place] Urine Protein Urine Glucose (UA) Urine Ketones Urine Blood Urine Nitrite Urine Bilirubin Urine Urobilinogen Ur Leukocyte Esterase Opiates Screen Negative Methadone Screen Negative Barbiturate Screen Negative Phencyclidine Screen Negative Ur Amphetamines Screen Negative MDMA (Ecstasy) Screen Negative Benzodiazepines Screen Negative Cocaine Screen Negative U Marijuana (THC) Screen Negative Alcohol, Quantitative < 3.0 Blood Type Antibody Screen CT head/2D echo/Carotid duplex results noted ASSESSMENT AND PLAN: 73 yom with PMHx of HTN, HLD, admitted with syncope with prodrome, in the setting of poor oral intake, being outdoors all da -Syncope, suspect vasovagal compounded hypovolumia, as evident by poor oral intake/being outdoors all day/NICOLA -HTN -HLD -Chronic elevated CPK Plan: Asymptomatic, renal function improved Neurology input noted. 2D echo/carotid duplex with no acute concerns. BP stable, patient advised adequate hydration, to hold Lisinopril/HCTZ, home BP and outpatient PCP follow up for monitoring renal function/cardiology referral Continue follow up with Dr. Nathan Not on statin given chronically elevated CPK dc home today with outpatient follow up as above Plan discussed with patient and at bedside in detail, all questions answered.
--- NOTE | 2019-01-05 14:41 | DS ---
Physical Exam: SUBJECTIVE: Patient seen and examined. No acute events overnight. He denies any dizziness, lightheadedness or nausea. Pt is feeling well and denies and pain or symptoms. OBJECTIVE: Vital Signs Period Temp Pulse Resp BP Sys/Majano Pulse Ox Last 24 Hr 97 F-98.1 F 65-75 15-18 108-143/46-82 96-99 PHYSICAL EXAM GENERAL: The patient is awake, alert, and fully oriented, in no acute distress. HEAD: Normal with no signs of trauma. EYES: PERRL, extraocular movements intact, sclera anicteric, conjunctiva clear. ENT: Ears normal, nares patent, oropharynx clear without exudates, moist mucous membranes. NECK: Trachea midline, full range of motion, supple. LUNGS: Breath sounds equal, clear to auscultation bilaterally, no wheezes, no crackles, no accessory muscle use. HEART: Regular rate and rhythm, S1, S2 without murmur, rub or gallop. ABDOMEN: Soft, nontender, nondistended, normoactive bowel sounds, no guarding, no rebound, no hepatosplenomegaly, no masses. EXTREMITIES: 2+ pulses, warm, well-perfused, no edema. NEUROLOGICAL: Cranial nerves II through XII grossly intact. Normal speech, gait not observed. PSYCH: Normal mood, normal affect. SKIN: Warm, dry, normal turgor, no rashes or lesions noted. LABS Laboratory Results - last 24 hr CBC, BMP 01/05/19 05:30 01/05/19 05:30 HOSPITAL COURSE: Date of Admission:01/05/19 Mr. John is a 73 year old male with PMH of HTN, HLD, and gout and presented to the ED after a syncopal episode yesterday. He was admitted for syncopal workup. Orthostatics were negative. CT head was neg for any acute pathology. Echo showed normal size and function, EF: 65%. Carotid doppler was negative for any hemodynamically significant stenoses. Pt was monitored on tele with no acute events. Neurology was consulted and does not recommend any further intervention at this time. Syncope was likely vasovagal compounded by hypovolemia, as evident by poor oral intake and being outside all day prior to arrival. Pt's vitals are stable and he is clinically stable to be discharged home with outpatient follow up. Date of Discharge: 01/05/19 Minutes to complete discharge: 45 Discharge Summary Problems reviewed: Yes Reason For Visit: SYNCOPE Condition: Stable - Instructions Diet, Activity, Other Instructions: Your visit You were admitted to the hospital because you had an episode of lightheadedness. Several lab tests and imaging were done and did not reveal any active disease. You were also seen by neurology and cardiology. This episode of lightheadedness was likely because of dehydration. It is important to eat a healthy diet and drink plenty of water. You were also noted to have abnormal kidney function on admission. You were given IV fluids, and your blood pressure medications, Lisinopril and Hydrochlorothiazide were held. Your kidney function improved. Please stop taking these medications at this time, until you see your primary care doctor when to resume it. Medications Please take note on the following changes to your medications: 1. Please STOP taking your blood pressure medications, Lisinopril and Hydrochlorothiazide until you see your primary care doctor. Please continue your other home medications as prescribed. Follow up Please follow up with your primary care doctor within 1 week. Please discuss with your doctor for outpatient referral to a twister doffer. Please follow up with your neurologist (Dr. Nathan) within 2 weeks. Blood work to check kidneys (BMP) in 1 week with your doctor Instructions: Advise home BP monitoring daily and maintain a diary. Notify Your doctor if SBP (upper BP reading) persistently > 140 or DBP (lower BP reading) >90, please notify your doctor as your BP medication (lisinopril/HCTZ) may need to be resumed if kidney function continues to stay normal. Avoid sudden changes in position Maintain adequate hydration Recommend avoid driving till next doctor visit. Discuss with your doctor and neurologist about starting a cholesterol medication Additional info Please call 911 or go to the Emergency Department if with any fevers, chills, headache, dizziness, chest pain, shortness of breath, abdominal pain, diarrhea or with any new concerns. Referrals: Jacob Kaiser MD [Primary Care Provider] - Freedom Nathan MD [Staff Physician] - Pk Vaz MD [Staff Physician] - Disposition: HOME - Home Medications Comprehensive Discharge Medication List: Ambulatory Orders Aspirin [ASA -] 81 mg PO DAILY 10/24/14 Cholecalciferol (Vitamin D3) [Vitamin D3] 1,000 units PO DAILY 10/24/14 Colesevelam HCl [Welchol] 625 mg PO DAILY 10/24/14 Multivitamin [Poly-Vitamin] 1 each PO DAILY 10/24/14 Kirkwood-3 Fatty Acids/Fish Oil [Fish Oil 1,000 mg Softgel] 1 each PO DAILY Omeprazole 20 mg PO DAILY 10/24/14 Pramipexole Di-HCl [Mirapex] 1 mg PO TID 10/24/14 Vitamin E 400 unit PO DAILY 10/24/14 Allopurinol 300 mg PO DAILY 01/05/19 Amlodipine Besylate 5 mg PO DAILY 01/05/19 This patient is new to me today: Yes Date on this admission: 01/05/19 Emergency Visit: Yes ED Registration Date: 01/05/19 Care time: The patient presented to the Emergency Department on the above date and was hospitalized for further evaluation of their emergent condition. Critical Care patient: No - Discharge Referral Referred to [id number] No ATTENDING PHYSICIAN STATEMENT I saw and evaluated the patient. I reviewed the resident's note and discussed the case with the resident. I agree with the resident's findings and plan as documented. SUBJECTIVE: OBJECTIVE: ASSESSMENT AND PLAN:
[2019-01-05] MEDS ORDERED: ATORVASTATIN CA 20 MG TABLET (FP) PO SCH (22:00)
== END 2019-01-05 14:10 | disposition home or self-care (01) | DRG 312 ==
LOC: JER 21:23 → JERBED 01-05 00:43 → OBSVTOIN 01-05 03:34
PROVIDERS: ADMIT Internal Medicine; ATTEND Hospitalist
DX: R55 Syncope and collapse (principal); N17.9 Acute kidney failure, unspecified; I10 Essential (primary) hypertension; E78.5 Hyperlipidemia, unspecified; E86.1 Hypovolemia; M10.9 Gout, unspecified; E66.9 Obesity, unspecified; Z68.33 Body mass index [BMI] 33.0-33.9, adult; Z85.46 Personal history of malignant neoplasm of prostate
CPT/HCPCS: 36415; 70450-TC; 71046-TC-FY; 80053; 80307; 81003; 82465; 82550; 82553; 83036; 83718; 83721; 83735; 84100; 84443; 84478; 84484; 85025; 85610; 85730; 86850; 86900; 86901; 93005; 93010; 93306-TC; 93880-TC; 99285-25; G0378; J1644; J7030

== ENCOUNTER 2021-06-27 04:21 | Day surgery (SDC) | payer OTHER, BC ==
[2021-06-26 13:27] VITALS: BMI 33.7
[2021-06-27] MEDS ORDERED: MIDAZOLAM HCL 2 MG/2 ML SINGLE DOSE VIAL ONE ×3 (11:09→11:26)
[2021-06-27] MEDS ORDERED: LIDOCAINE HCL/PF 2% SDV 5ML VIAL ONE (11:09)
[2021-06-27] MEDS ORDERED: PROPOFOL 20 ML ONE ×2 (11:09→12:03)
[2021-06-27] MEDS ORDERED: BUPIVACAINE HCL/PF 0.5% (5MG/ML) 10 ML VIAL ONE ×2 (11:18→11:19)
[2021-06-27] MEDS ORDERED: DEXAMETHASONE SOD PHOSPHATE 10 MG/1 ML VIAL ONE (11:19)
[2021-06-27] MEDS ORDERED: SODIUM CHLORIDE 0.9% P/F 10 ML VIAL IJ ONE (11:20)
[2021-06-27] MEDS ORDERED: ceFAZolin SODIUM 1 GM VIAL IVPB ONE (11:48)
[2021-06-27] MEDS ORDERED: ceFAZolin SODIUM 1 GM VIAL ONE (11:52)
[2021-06-27] MEDS ORDERED: DEXAMETHASONE SOD PHOSPHATE 4 MG/1 ML VIAL ONE (11:52)
[2021-06-27 14:47] VITALS: TEMP 97.6
[2021-06-27] MEDS ORDERED: oxyCODONE HCL 5 MG TABLET PO ONE (16:31)
[2021-06-27] MEDS ORDERED: oxyCODONE HCL 10 MG SUSTAINED ACTING TABLET ONE (16:34)
[2021-06-27 18:27] VITALS: BP 129/70; PULSE 71
== END 2021-06-27 17:43 | disposition home or self-care (01) ==
LOC: JASU-SURG 04:21
PROVIDERS: ATTEND Orthopaedic Surgery
PROC: 0LMM0ZZ Reattachment of Left Upper Leg Tendon, Open Approach (ICD-10-PCS; principal; 2021-06-27 10:45)
DX: S76.112A Strain of left quadriceps muscle, fascia and tendon, initial encounter (principal); X58.XXXA Exposure to other specified factors, initial encounter; Y93.9 Activity, unspecified; Y92.9 Unspecified place or not applicable; Y99.9 Unspecified external cause status
CPT/HCPCS: 94760; J1100

== ENCOUNTER 2022-12-31 04:29 | Day surgery (SDC) | payer OTHER, BC ==
[2022-12-30 15:50] VITALS: BMI 31.3
[~2022-12-31 04:29] MED LIST: DEXAMETHASONE SOD PHOSPHATE 10 MG/1 ML VIAL IM ONE; IOHEXOL 180 MG/1 ML ML IJ ONE; LIDOCAINE HCL 1% PRESERVATIVE FREE - 30ML VIAL IJ ONE
[2022-12-31] MEDS ORDERED: DEXAMETHASONE SOD PHOSPHATE 4 MG/1 ML VIAL ONE (07:20)
[2022-12-31] MEDS ORDERED: DEXAMETHASONE SOD PHOSPHATE 10 MG/1 ML VIAL ONE (07:20)
[2022-12-31] MEDS ORDERED: ACETAMINOPHEN 500 MG TABLET (FP) PO PRN (08:55)
[2022-12-31 10:43] VITALS: RESP 20
[2022-12-31] MEDS ORDERED: LIDOCAINE HCL 1% PRESERVATIVE FREE - 30ML VIAL IJ ONE (11:42)
[2022-12-31] MEDS ORDERED: IOHEXOL 180 MG/1 ML ML IJ ONE (11:45)
[2022-12-31] MEDS ORDERED: DEXAMETHASONE SOD PHOSPHATE 10 MG/1 ML VIAL IM ONE (11:47)
[2022-12-31 12:50] VITALS: BP 150/73; PULSE 60; TEMP 97.5
== END 2022-12-31 13:06 | disposition home or self-care (01) ==
LOC: JASU-SURG 04:29
PROVIDERS: ATTEND Pain Medicine Pain Medicine
PROC: 3E0R3BZ Introduction of Anesthetic Agent into Spinal Canal, Percutaneous Approach (ICD-10-PCS; 2022-12-31)
PROC: 3E0R33Z Introduction of Anti-inflammatory into Spinal Canal, Percutaneous Approach (ICD-10-PCS; principal; 2022-12-31 11:45)
DX: M54.16 Radiculopathy, lumbar region (principal)
CPT/HCPCS: 76000-TC-FY; J1100

== ENCOUNTER 2023-03-25 04:23 | Day surgery (SDC) | payer OTHER, BC ==
[2023-03-24 10:34] VITALS: BMI 33.6
[~2023-03-25 04:23] MED LIST changes: -DEXAMETHASONE SOD PHOSPHATE 10 MG/1 ML VIAL IM ONE; -IOHEXOL 180 MG/1 ML ML IJ ONE
[2023-03-25] MEDS ORDERED: LIDOCAINE HCL/PF 1% SDV 5ML VIAL ONE (07:08)
[2023-03-25] MEDS ORDERED: LIDOCAINE HCL 1% PRESERVATIVE FREE - 30ML VIAL IJ ONE (08:48)
[2023-03-25 09:47] VITALS: BP 144/84; PULSE 58; RESP 19; TEMP 98
[2023-03-25] MEDS ORDERED: ACETAMINOPHEN 500 MG TABLET (FP) PO PRN (10:07)
== END 2023-03-25 09:53 | disposition home or self-care (01) ==
LOC: JASU-SURG 04:23
PROVIDERS: ATTEND Pain Medicine Pain Medicine
PROC: 01HY3MZ Insertion of Neurostimulator Lead into Peripheral Nerve, Percutaneous Approach (ICD-10-PCS; principal; 2023-03-25 08:00)
DX: G89.4 Chronic pain syndrome (principal); M96.1 Postlaminectomy syndrome, not elsewhere classified; M54.50 Low back pain, unspecified
CPT/HCPCS: 64555; C1778; 76000-TC-FY

== ENCOUNTER 2023-04-08 04:17 | Day surgery (SDC) | payer OTHER, BC ==
[2023-04-04 16:45] VITALS: BMI 33.6
[2023-04-08] MEDS ORDERED: LIDOCAINE HCL/PF 1% SDV 5ML VIAL ONE (07:31)
[2023-04-08 07:52] VITALS: RESP 18
[2023-04-08] MEDS: LIDOCAINE 1% P/F 10 MG/ML VIAL INF ONE ×2 (09:12)
[2023-04-08 09:43] VITALS: BP 128/83; PULSE 56; TEMP 98.3
[2023-04-08] MEDS ORDERED: ACETAMINOPHEN 500 MG TABLET (FP) PO PRN (14:50)
== END 2023-04-08 10:05 | disposition home or self-care (01) ==
LOC: JASU-SURG 04:17
PROVIDERS: ATTEND Pain Medicine Pain Medicine
PROC: 01HY3MZ Insertion of Neurostimulator Lead into Peripheral Nerve, Percutaneous Approach (ICD-10-PCS; principal; 2023-04-08 09:00)
DX: G89.4 Chronic pain syndrome (principal)
CPT/HCPCS: 64555; C1778; 76000-TC-FY

== ENCOUNTER 2024-01-30 04:00 | Day surgery (SDC) | payer OTHER, BC ==
[2024-01-26 11:40] VITALS: BMI 35.2
[~2024-01-30 04:00] MED LIST changes: +ACETAMINOPHEN 500 MG TABLET (FP) PO PRN; -LIDOCAINE HCL 1% PRESERVATIVE FREE - 30ML VIAL IJ ONE
[2024-01-30] MEDS ORDERED: LIDOCAINE HCL/PF 1% SDV 5ML VIAL ONE (07:15)
[2024-01-30] MEDS ORDERED: BUPIVACAINE HCL/PF 0.25% (2.5MG/ML) 10 ML VIAL ONE (07:15)
[2024-01-30 07:39] VITALS: TEMP 98.2
[2024-01-30] MEDS ORDERED: MIDAZOLAM HCL 2 MG/2 ML SINGLE DOSE VIAL ONE (09:35)
[2024-01-30] MEDS: ceFAZolin SODIUM 1 GM VIAL IVPB ONE ×2 (09:41)
[2024-01-30 11:17] VITALS: RESP 18
[2024-01-30 12:20] VITALS: BP 130/73; PULSE 67
== END 2024-01-30 12:30 | disposition home or self-care (01) ==
LOC: JASU-SURG 04:00
PROVIDERS: ATTEND Pain Medicine Pain Medicine
PROC: 00HU3MZ Insertion of Neurostimulator Lead into Spinal Canal, Percutaneous Approach (ICD-10-PCS; 2024-01-30)
PROC: 00HV0MZ Insertion of Neurostimulator Lead into Spinal Cord, Open Approach (ICD-10-PCS; principal; 2024-01-30 09:15)
DX: G89.4 Chronic pain syndrome (principal)
CPT/HCPCS: 63650; C1897; 76000-TC-FY; C1889

== ENCOUNTER 2024-04-23 05:20 | Day surgery (SDC) | payer OTHER, BC ==
[2024-04-21 09:27] VITALS: BMI 34.9
[2024-04-23] MEDS ORDERED: VANCOMYCIN 1,000 MG VIAL (RESTRICTED TO ID ONLY) ONE ×2 (08:22→14:01)
[2024-04-23] MEDS ORDERED: ACETAMINOPHEN 500 MG TABLET (FP) PO PRN (08:29)
[2024-04-23] MEDS ORDERED: LIDOCAINE HCL/PF 1% SDV 5ML VIAL ONE (13:40)
[2024-04-23] MEDS ORDERED: LIDOCAINE HCL/PF 2% SDV 5ML VIAL ONE ×2 (13:40→14:03)
[2024-04-23] MEDS ORDERED: DEXMEDETOMIDINE HCL 200 MCG/2 ML IVPB ONE (14:02)
[2024-04-23] MEDS ORDERED: PROPOFOL 20 ML ONE (14:03)
[2024-04-23] MEDS ORDERED: MIDAZOLAM HCL 2 MG/2 ML SINGLE DOSE VIAL ONE (14:03)
[2024-04-23] MEDS ORDERED: KETOROLAC TROMETHAMINE 30 MG/1 ML VIAL ONE (15:02)
[2024-04-23] MEDS ORDERED: DEXAMETHASONE SOD PHOSPHATE 4 MG/1 ML VIAL ONE (15:02)
[2024-04-23] MEDS ORDERED: ceFAZolin SODIUM 1 GM VIAL ONE (15:02)
[2024-04-23] MEDS ORDERED: ONDANSETRON 4 MG/2 ML VIAL ONE (15:02)
[2024-04-23] MEDS: ceFAZolin SODIUM 1 GM VIAL IVPB ONE (15:03)
[2024-04-23] MEDS: LIDOCAINE 1% P/F 10 MG/ML VIAL INF ONE (15:40)
[2024-04-23] MEDS: LIDOCAINE HCL/PF 2% SDV 5ML VIAL INF ONE (15:41)
[2024-04-23] MEDS ORDERED: ONDANSETRON 4 MG/2 ML VIAL IVPUSH PRN (16:14)
[2024-04-23] MEDS ORDERED: LACTATED RINGERS SOLUTION 1,000 ML IV SCH (16:15)
[2024-04-23 19:59] VITALS: RESP 16
[2024-04-23 20:49] VITALS: BP 148/84; PULSE 52; TEMP 98.1
== END 2024-04-23 22:24 | disposition home or self-care (01) ==
LOC: JASU-SURG 05:20 → JASUSAT 05:20 → J6S 20:37 → JASUSAT 22:24
PROVIDERS: ATTEND Pain Medicine Pain Medicine
PROC: 01HY3MZ Insertion of Neurostimulator Lead into Peripheral Nerve, Percutaneous Approach (ICD-10-PCS; 2024-04-23)
PROC: 0JH73BZ Insertion of Single Array Stimulator Generator into Back Subcutaneous Tissue and Fascia, Percutaneous Approach (ICD-10-PCS; principal; 2024-04-23 12:30)
DX: G89.4 Chronic pain syndrome (principal); M96.1 Postlaminectomy syndrome, not elsewhere classified
CPT/HCPCS: 63650; 63685; C1778; L8679; 76000-TC-FY; 94760; C1767; C1897

== ENCOUNTER 2024-05-12 11:06 | Inpatient (IN) | payer OTHER, BC ==
[2024-05-12 12:48] LABS: ABSOLUTE IMMATURE GRANULOCYTES 0.09 x10^3/uL (0.0-0.031); BASOPHILS # 0.05 x10^3/uL (0.01-0.08); EOSINOPHIL % 1.9 % (0.8-7.0); EOSINOPHILS # 0.24 x10^3/uL (0.04-0.54); HEMATOCRIT 39.6 % (40.1-51.0); HEMOGLOBIN 12.7 g/dL (13.7-17.5); MCHC 32.1 g/dl (32.3-36.5); MEAN CELL VOLUME 86.8 fl (79.0-92.2); MEAN PLT VOLUME 9.8 fl (9.4-12.4); MONOCYTE # 0.93 x10^3/uL (0.30-0.82); MONOCYTE % 7.5 % (5.3-12.2); PLATELET COUNT # 227 x10^3/uL (163-337)
[2024-05-12 12:51] LABS: URINE APPEARANCE CLEAR; URINE BILIRUBIN NEGATIVE (NEGATIVE); URINE COLOR YELLOW; URINE GLUCOSE (UA) NEGATIVE (NEGATIVE); URINE KETONE NEGATIVE (NEGATIVE); URINE LEUK ESTERASE NEGATIVE (NEGATIVE); URINE NITRITE NEGATIVE (NEGATIVE); URINE PROTEIN NEGATIVE (NEGATIVE); URINE UROBILINOGEN 0.2 mg/dL (0.2-1.0)
[2024-05-12 12:57] LABS: INR 1.16 (0.83-1.09); PROTHROMBIN TIME (PATIENT) 12.6 SEC (9.7-13.0)
[2024-05-12 13:25] LABS: POTASSIUM 3.9 mmol/L (3.5-5.1)
[2024-05-12 13:27] LABS: ALBUMIN 3.5 g/dl (3.4-5.0); CALCIUM 9.1 mg/dL (8.5-10.1)
[2024-05-12 13:31] LABS: CREATININE 1.8 mg/dL (0.55-1.3)
[2024-05-12 13:32] LABS: BILIRUBIN,TOTAL 1.6 mg/dL (0.2-1); TOT PROT 7.2 g/dl (6.4-8.2)
[2024-05-12 13:35] LABS: ERYTHROCYTE SEDIMENTATION RATE 78 mm/hr (0-20)
[2024-05-12] MEDS: VANCOMYCIN PREMIX 1.75 GM 1,750 MG/350 ML PIGGYBACK IVPB ONE (13:57)
[2024-05-12] MEDS ORDERED: PIPERACILLIN/TAZOB 3.375 GM 50 ML IVPB SCH (16:00)
[2024-05-12 17:22] VITALS: BMI 34.7
[2024-05-12] MEDS: PYRIDOSTIGMINE BROMIDE 60 MG TABLET PO SCH (18:55)
[2024-05-12] MEDS: SODIUM CHLORIDE 1,000 ML IV SCH (18:55)
[2024-05-12] MEDS: PIPERACILLIN/TAZOB 3.375 GM 50 ML IVPB SCH (21:00)
[2024-05-12] MEDS ORDERED: LINEZOLID 600 MG PREMIX BAG 600 MG in PREMIX 300 IV SCH (22:00)
[2024-05-12] MEDS ORDERED: LINEZOLID 600 MG PREMIX BAG 600 MG/300 ML BAG IVPB SCH (22:00)
[2024-05-12] MEDS: HEPARIN NA (PORCINE) 5,000 UNITS/ML 1ML VIAL SQ SCH (23:00)
[2024-05-12] MEDS: FLUCONAZOLE 150 MG TABLET PO ONE (23:00)
[2024-05-12] MEDS: CLOTRIMAZOLE/BETAMET DIPROP TOPICAL CREAM 45 GM TUBE TP SCH (23:00)
[2024-05-12] MEDS: PRAMIPEXOLE DIHYDROCHLORIDE 1 MG TABLET PO SCH ×2 (23:01)
[2024-05-12] MEDS: PREGABALIN 75 MG CAPSULE PO SCH (23:01)
[2024-05-12] MEDS: INSULIN ASPART SLIDING SCALE (NOVOLOG) 1 VIAL SQ SCH (23:31)
[2024-05-13 08:45] LABS: ABSOLUTE IMMATURE GRANULOCYTES 0.05 x10^3/uL (0.0-0.031); BASOPHILS # 0.05 x10^3/uL (0.01-0.08); EOSINOPHIL % 4.2 % (0.8-7.0); EOSINOPHILS # 0.41 x10^3/uL (0.04-0.54); HEMATOCRIT 36.4 % (40.1-51.0); HEMOGLOBIN 11.6 g/dL (13.7-17.5); MCHC 31.9 g/dl (32.3-36.5); MEAN CELL VOLUME 86.9 fl (79.0-92.2); MEAN PLT VOLUME 9.8 fl (9.4-12.4); MONOCYTE # 0.89 x10^3/uL (0.30-0.82); MONOCYTE % 9.1 % (5.3-12.2); PLATELET COUNT # 225 x10^3/uL (163-337)
[2024-05-13 09:05] LABS: POTASSIUM 4.2 mmol/L (3.5-5.1)
[2024-05-13 09:09] LABS: CALCIUM 8.7 mg/dL (8.5-10.1)
[2024-05-13 09:10] LABS: BLOOD UREA NITROGEN 33.9 mg/dL (7-18); MAGNESIUM 2.3 mg/dL (1.8-2.4)
[2024-05-13 09:13] LABS: CREATININE 1.7 mg/dL (0.55-1.3); PHOSPHOROUS 2.5 mg/dL (2.5-4.9)
[2024-05-13 09:14] LABS: TOT PROT 6.5 g/dl (6.4-8.2)
[2024-05-13] MEDS: ALLOPURINOL 300 MG TABLET (FP) PO SCH (10:39)
[2024-05-13] MEDS ORDERED: VANCOMYCIN HCL IN 5 % DEXTROSE 1,500 MG/300 ML BAG IVPB ONE (14:00)
[2024-05-13] MEDS: SODIUM CHLORIDE 1,000 ML IV STA (16:54)
[2024-05-14] MEDS: ACETAMINOPHEN 1000 MG/100 ML BAG IVPB PRN (06:15)
[2024-05-14 09:46] LABS: INR 1.24 (0.83-1.09); PROTHROMBIN TIME (PATIENT) 13.5 SEC (9.7-13.0)
[2024-05-14 09:47] LABS: ABSOLUTE IMMATURE GRANULOCYTES 0.03 x10^3/uL (0.0-0.031); BASOPHILS # 0.05 x10^3/uL (0.01-0.08); EOSINOPHIL % 7.8 % (0.8-7.0); EOSINOPHILS # 0.62 x10^3/uL (0.04-0.54); HEMATOCRIT 35.4 % (40.1-51.0); HEMOGLOBIN 11.5 g/dL (13.7-17.5); MCHC 32.5 g/dl (32.3-36.5); MEAN CELL VOLUME 86.6 fl (79.0-92.2); MEAN PLT VOLUME 9.9 fl (9.4-12.4); MONOCYTE # 0.77 x10^3/uL (0.30-0.82); MONOCYTE % 9.7 % (5.3-12.2); PLATELET COUNT # 235 x10^3/uL (163-337); RDW 13.9 % (12.2-16.6)
[2024-05-14 10:02] LABS: POTASSIUM 4.1 mmol/L (3.5-5.1)
[2024-05-14 10:21] LABS: CALCIUM 8.3 mg/dL (8.5-10.1)
[2024-05-14 10:22] LABS: BLOOD UREA NITROGEN 23.8 mg/dL (7-18)
[2024-05-14 10:25] LABS: BILIRUBIN,TOTAL 1.6 mg/dL (0.2-1); CREATININE 1.5 mg/dL (0.55-1.3); TOT PROT 6.5 g/dl (6.4-8.2)
[2024-05-14] MEDS ORDERED: THROMBIN (BOVINE) 20,000 UNIT VIAL TP ONE (18:57)
[2024-05-14] MEDS ORDERED: BUPIVACAINE LIPOSOME/PF (EXPAREL) 266 MG/20 ML VIAL ONE (18:58)
[2024-05-14] MEDS ORDERED: BUPIVACAINE HCL/PF 0.5% (5MG/ML) 10 ML VIAL ONE (18:58)
[2024-05-14] MEDS ORDERED: LIDOCAINE 1%/EPI 1:100000 (20 ML MULTI DOSE VIAL) ONE (18:58)
[2024-05-14] MEDS ORDERED: LIDOCAINE HCL/PF 2% SDV 5ML VIAL ONE (19:16)
[2024-05-14] MEDS ORDERED: PROPOFOL 80 ML ONE (19:16)
[2024-05-14] MEDS ORDERED: MIDAZOLAM HCL 2 MG/2 ML SINGLE DOSE VIAL ONE (19:17)
[2024-05-14] MEDS ORDERED: GENTAMICIN SO4 80 MG/2 ML VIAL ONE (19:43)
[2024-05-14] MEDS ORDERED: VANCOMYCIN 1,000 MG VIAL (RESTRICTED TO ID ONLY) ONE (19:43)
[2024-05-14] MEDS ORDERED: SUCCINYLCHOLINE CHLORIDE 200 MG/10 ML SYRINGE ONE (20:14)
[2024-05-14] MEDS ORDERED: LIDOCAINE HCL 1%, 10 MG/ML (20ML VIAL) ONE (21:15)
[2024-05-14] MEDS: LIDOCAINE HCL 1%, 10 MG/ML (50 mL VIAL) INF ONE (21:23)
[2024-05-14] MEDS: GENTAMICIN SO4 80 MG/2 ML VIAL IVPB ONE (21:25)
[2024-05-14] MEDS: ceFAZolin SODIUM 1 GM VIAL IVPB ONE (21:25)
[2024-05-14] MEDS: HYDROGEN PEROXIDE 473 ML PO ONE (21:25)
[2024-05-14] MEDS ORDERED: ceFAZolin SODIUM 1 GM VIAL ONE (21:36)
[2024-05-14] MEDS ORDERED: KETOROLAC TROMETHAMINE 30 MG/1 ML VIAL ONE (21:56)
[2024-05-14] MEDS ORDERED: ONDANSETRON 4 MG/2 ML VIAL ONE (21:56)
[2024-05-14] MEDS ORDERED: PROPOFOL 40 ML ONE (21:56)
[2024-05-14] MEDS ORDERED: PROPOFOL 20 ML ONE (22:35)
[2024-05-14] MEDS ORDERED: PROMETHAZINE HCL 25 MG/1 ML VIAL IVPB PRN (23:49)
[2024-05-14] MEDS ORDERED: ONDANSETRON 4 MG/2 ML VIAL IVPUSH PRN (23:49)
[2024-05-14] MEDS ORDERED: hydrALAZINE HCL 20 MG/ML VIAL ONE (23:52)
[2024-05-15] MEDS: ACETAMINOPHEN 1000 MG/100 ML BAG IVPB ONE
[2024-05-15] MEDS: LACTATED RINGERS SOLUTION 1,000 ML IV SCH ×2 (00:01→03:21)
[2024-05-15] MEDS ORDERED: ONDANSETRON 4 MG/2 ML VIAL IVPUSH PRN (00:37)
[2024-05-15] MEDS ORDERED: VANCOMYCIN HCL IN 5 % DEXTROSE 1,500 MG/300 ML BAG IVPB ONE (00:37)
[2024-05-15] MEDS ORDERED: PROMETHAZINE HCL 25 MG/1 ML VIAL IVPB PRN (00:37)
[2024-05-15] MEDS: PIPERACILLIN/TAZOB 3.375 GM 50 ML IVPB SCH (03:29)
[2024-05-15] MEDS: NALOXONE HCL 0.4 MG/ML VIAL IVPUSH ONE (04:57)
[2024-05-15 05:34] LABS: ALLENS TEST POSITIVE; ARTERIAL BLD GAS O2 SATURATION 97.5 % (95-98); ARTERIAL BLOOD GAS BASE EXCESS -5.5 mmol/L (-2-2); ARTERIAL BLOOD GAS PO2 104.2 mmHg (80-100); ARTERIAL BLOOD GAS pH 7.335 (7.350-7.450)
[2024-05-15] MEDS: PREGABALIN 75 MG CAPSULE PO SCH (06:11)
[2024-05-15] MEDS: PRAMIPEXOLE DIHYDROCHLORIDE 1 MG TABLET PO SCH ×2 (06:11→21:06)
[2024-05-15] MEDS ORDERED: oxyCODONE HCL 5 MG TABLET PO PRN (08:32)
[2024-05-15 08:42] LABS: ABSOLUTE IMMATURE GRANULOCYTES 0.03 x10^3/uL (0.0-0.031); BASOPHILS # 0.02 x10^3/uL (0.01-0.08); HEMATOCRIT 31.9 % (40.1-51.0); HEMOGLOBIN 10.1 g/dL (13.7-17.5); MCHC 31.7 g/dl (32.3-36.5); MEAN CELL VOLUME 87.9 fl (79.0-92.2); MEAN PLT VOLUME 10.1 fl (9.4-12.4); MONOCYTE # 0.65 x10^3/uL (0.30-0.82); MONOCYTE % 9.6 % (5.3-12.2); PLATELET COUNT # 196 x10^3/uL (163-337)
[2024-05-15 09:11] LABS: POTASSIUM 4.7 mmol/L (3.5-5.1)
[2024-05-15 09:14] LABS: ALBUMIN 2.4 g/dl (3.4-5.0); BLOOD UREA NITROGEN 21.9 mg/dL (7-18); CALCIUM 7.7 mg/dL (8.5-10.1)
[2024-05-15 09:15] LABS: MAGNESIUM 2.2 mg/dL (1.8-2.4)
[2024-05-15 09:18] LABS: CREATININE 1.3 mg/dL (0.55-1.3)
[2024-05-15 09:19] LABS: BILIRUBIN,TOTAL 0.8 mg/dL (0.2-1); TOT PROT 5.4 g/dl (6.4-8.2)
[2024-05-15] MEDS: ALLOPURINOL 300 MG TABLET (FP) PO SCH (09:40)
[2024-05-15] MEDS: ACETAMINOPHEN 1000 MG/100 ML BAG IVPB PRN (16:42)
[2024-05-15] MEDS: PYRIDOSTIGMINE BROMIDE 60 MG TABLET PO SCH (17:24)
[2024-05-15] MEDS: PATIENT'S OWN MEDICATION (NON-FORMULARY) (Colesevelam Hcl [Welchol] 625 MG Tablet) PO SCH (22:41)
[2024-05-16] MEDS: oxyCODONE HCL 5 MG TABLET PO PRN (00:44)
[2024-05-16 09:24] LABS: POTASSIUM 4.1 mmol/L (3.5-5.1)
[2024-05-16 09:46] LABS: CALCIUM 8.2 mg/dL (8.5-10.1)
[2024-05-16 09:47] LABS: BLOOD UREA NITROGEN 19.4 mg/dL (7-18)
[2024-05-16 09:50] LABS: ABSOLUTE IMMATURE GRANULOCYTES 0.04 x10^3/uL (0.0-0.031); BASOPHILS # 0.03 x10^3/uL (0.01-0.08); CREATININE 1.4 mg/dL (0.55-1.3); EOSINOPHIL % 9.4 % (0.8-7.0); EOSINOPHILS # 0.69 x10^3/uL (0.04-0.54); HEMATOCRIT 31.5 % (40.1-51.0); HEMOGLOBIN 10.1 g/dL (13.7-17.5); MCHC 32.1 g/dl (32.3-36.5); MEAN CELL VOLUME 86.5 fl (79.0-92.2); MONOCYTE # 0.57 x10^3/uL (0.30-0.82); MONOCYTE % 7.7 % (5.3-12.2); PLATELET COUNT # 260 x10^3/uL (163-337); RDW 13.9 % (12.2-16.6)
[2024-05-16] MEDS: CEFAZOLIN 2 GM/D5W 2 GM/50 ML ML IVPB SCH (19:23)
[2024-05-16] MEDS: diphenhydrAMINE HCL 25 MG CAPSULE (FP) PO ONE (21:27)
[2024-05-17] MEDS: diphenhydrAMINE HCL 25 MG CAPSULE (FP) PO ONE (02:53)
[2024-05-17] MEDS: ALBUTEROL SO4 HFA INHALER IH ONE (03:03)
[2024-05-17 08:32] LABS: HEMOGLOBIN 9.9 g/dL (13.7-17.5); MCHC 31.9 g/dl (32.3-36.5); MEAN CELL VOLUME 86.8 fl (79.0-92.2); PLATELET COUNT # 241 x10^3/uL (163-337); RDW 13.9 % (12.2-16.6)
[2024-05-17 09:37] LABS: POTASSIUM 4.3 mmol/L (3.5-5.1)
[2024-05-17 10:08] LABS: CREATININE 1.2 mg/dL (0.55-1.3)
[2024-05-17 10:10] LABS: BLOOD UREA NITROGEN 12.3 mg/dL (7-18)
[2024-05-17] MEDS: HEPARIN NA (PORCINE) 5,000 UNITS/ML 1ML VIAL SQ SCH (21:30)
[2024-05-17] MEDS: CALAMINE 8% TOPICAL LOTION 177 ML BOTTLE TP PRN (23:58)
[2024-05-18] MEDS: diphenhydrAMINE HCL 25 MG CAPSULE (FP) PO ONE ×2 (01:48→11:48)
[2024-05-18 09:20] LABS: ABSOLUTE IMMATURE GRANULOCYTES 0.05 x10^3/uL (0.0-0.031); BASOPHILS # 0.02 x10^3/uL (0.01-0.08); EOSINOPHIL % 7.6 % (0.8-7.0); EOSINOPHILS # 0.51 x10^3/uL (0.04-0.54); HEMATOCRIT 33.7 % (40.1-51.0); HEMOGLOBIN 10.6 g/dL (13.7-17.5); MCHC 31.5 g/dl (32.3-36.5); MEAN CELL VOLUME 86.4 fl (79.0-92.2); MEAN PLT VOLUME 9.7 fl (9.4-12.4); MONOCYTE # 0.34 x10^3/uL (0.30-0.82); MONOCYTE % 5.1 % (5.3-12.2); PLATELET COUNT # 333 x10^3/uL (163-337); RDW 13.9 % (12.2-16.6)
[2024-05-18 09:45] LABS: POTASSIUM 4.2 mmol/L (3.5-5.1)
[2024-05-18 09:52] LABS: BLOOD UREA NITROGEN 11.5 mg/dL (7-18); CREATININE 1.2 mg/dL (0.55-1.3)
[2024-05-18 09:53] LABS: CALCIUM 8.7 mg/dL (8.5-10.1)
[2024-05-18 09:54] LABS: MAGNESIUM 2.3 mg/dL (1.8-2.4)
[2024-05-18 09:56] LABS: TOT PROT 6.3 g/dl (6.4-8.2)
[2024-05-18 09:58] LABS: PHOSPHOROUS 2.9 mg/dL (2.5-4.9)
[2024-05-18 09:59] LABS: ALBUMIN 2.9 g/dl (3.4-5.0); BILIRUBIN,TOTAL 0.6 mg/dL (0.2-1)
[2024-05-18] MEDS ORDERED: LACTATED RINGERS SOLUTION 1,000 ML IV SCH (10:33)
[2024-05-18] MEDS: LORATADINE 10 MG TABLET PO SCH (11:12)
[2024-05-18] MEDS: LINEZOLID 600 MG PREMIX BAG 600 MG/300 ML BAG IVPB SCH (15:54)
[2024-05-18] MEDS: hydrOXYzine PAMOATE 25 MG CAPSULE (FP) PO ONE (21:03)
[2024-05-19 09:29] LABS: ABSOLUTE IMMATURE GRANULOCYTES 0.07 x10^3/uL (0.0-0.031); BASOPHILS # 0.02 x10^3/uL (0.01-0.08); EOSINOPHIL % 7.7 % (0.8-7.0); EOSINOPHILS # 0.55 x10^3/uL (0.04-0.54); MCHC 31.6 g/dl (32.3-36.5); MEAN CELL VOLUME 87.8 fl (79.0-92.2); MONOCYTE # 0.33 x10^3/uL (0.30-0.82); MONOCYTE % 4.6 % (5.3-12.2); RDW 13.8 % (12.2-16.6)
[2024-05-19 09:47] LABS: POTASSIUM 4.4 mmol/L (3.5-5.1)
[2024-05-19 09:58] LABS: CALCIUM 8.9 mg/dL (8.5-10.1)
[2024-05-19 09:59] LABS: ALBUMIN 3.1 g/dl (3.4-5.0); BLOOD UREA NITROGEN 10.9 mg/dL (7-18); MAGNESIUM 2.3 mg/dL (1.8-2.4)
[2024-05-19 10:01] LABS: CREATININE 1.2 mg/dL (0.55-1.3)
[2024-05-19 10:02] LABS: BILIRUBIN,TOTAL 0.6 mg/dL (0.2-1); PHOSPHOROUS 3.1 mg/dL (2.5-4.9); TOT PROT 6.6 g/dl (6.4-8.2)
[2024-05-19 10:49] LABS: ERYTHROCYTE SEDIMENTATION RATE 92 mm/hr (0-20)
[2024-05-19] MEDS: TRIAMCINOLONE ACET 0.1% CREAM 15 GM TUBE TP SCH (11:21)
[2024-05-19] MEDS: amLODIPine BESYLATE 5 MG TABLET (FP) PO SCH (11:59)
[2024-05-19] MEDS: ASPIRIN 81 MG CHEWABLE TABLETS PO SCH (15:43)
[2024-05-19] MEDS: LOSARTAN POTASSIUM 50 MG TABLET PO SCH (15:44)
[2024-05-19 20:28] LABS: PLATELET COUNT # 360 x10^3/uL (163-337)
[2024-05-20] MEDS: hydrOXYzine PAMOATE 25 MG CAPSULE (FP) PO PRN (12:08)
[2024-05-21 09:19] LABS: ABSOLUTE IMMATURE GRANULOCYTES 0.14 x10^3/uL (0.0-0.031); BASOPHILS # 0.04 x10^3/uL (0.01-0.08); EOSINOPHIL % 6.8 % (0.8-7.0); HEMATOCRIT 38.3 % (40.1-51.0); HEMOGLOBIN 11.9 g/dL (13.7-17.5); MCHC 31.1 g/dl (32.3-36.5); MEAN CELL VOLUME 87.2 fl (79.0-92.2); MEAN PLT VOLUME 9.4 fl (9.4-12.4); MONOCYTE # 0.24 x10^3/uL (0.30-0.82); MONOCYTE % 3.3 % (5.3-12.2); PLATELET COUNT # 420 x10^3/uL (163-337); RDW 14.1 % (12.2-16.6)
[2024-05-21 09:39] LABS: POTASSIUM 4.4 mmol/L (3.5-5.1)
[2024-05-21 09:45] LABS: BLOOD UREA NITROGEN 10.5 mg/dL (7-18); CALCIUM 9.1 mg/dL (8.5-10.1); MAGNESIUM 2.4 mg/dL (1.8-2.4)
[2024-05-21 09:48] LABS: CREATININE 1.1 mg/dL (0.55-1.3); PHOSPHOROUS 3.3 mg/dL (2.5-4.9)
[2024-05-21 10:08] LABS: ERYTHROCYTE SEDIMENTATION RATE 39 mm/hr (0-20)
[2024-05-21] MEDS: FAMOTIDINE 20 MG TABLET PO SCH (10:25)
[2024-05-21] MEDS ORDERED: FUROSEMIDE 40 MG TABLET (FP) PO SCH (14:00)
[2024-05-21] MEDS: FUROSEMIDE 40 MG TABLET (FP) PO SCH ×2 (14:17→15:25)
[2024-05-21] MEDS: CLINDAMYCIN HCL 150 MG CAPSULE (FP) PO SCH (17:25)
[2024-05-22 14:58] VITALS: BP 148/61; PULSE 63; RESP 14; TEMP 97.2
== END 2024-05-22 10:30 | disposition home or self-care (01) | DRG 29 ==
LOC: JER 11:06 → JERBED 14:37 → J5S 16:15
PROVIDERS: ADMIT Internal Medicine
PROC: 00PU0MZ Removal of Neurostimulator Lead from Spinal Canal, Open Approach (ICD-10-PCS; principal; 2024-05-16)
PROC: 0JB90ZZ Excision of Buttock Subcutaneous Tissue and Fascia, Open Approach (ICD-10-PCS; 2024-05-16)
PROC: 0JPT0MZ Removal of Stimulator Generator from Trunk Subcutaneous Tissue and Fascia, Open Approach (ICD-10-PCS; 2024-05-16)
DX: T85.733A Infection and inflammatory reaction due to implanted electronic neurostimulator of spinal cord, electrode (lead), initial encounter (principal); E87.1 Hypo-osmolality and hyponatremia; T81.40XA Infection following a procedure, unspecified, initial encounter; N17.9 Acute kidney failure, unspecified; L03.317 Cellulitis of buttock; E78.5 Hyperlipidemia, unspecified; G25.81 Restless legs syndrome; G70.00 Myasthenia gravis without (acute) exacerbation; I12.9 Hypertensive chronic kidney disease with stage 1 through stage 4 chronic kidney disease, or unspecified chronic kidney disease; N18.9 Chronic kidney disease, unspecified; E86.1 Hypovolemia; M10.9 Gout, unspecified; Y83.8 Other surgical procedures as the cause of abnormal reaction of the patient, or of later complication, without mention of misadventure at the time of the procedure; Z85.46 Personal history of malignant neoplasm of prostate
CPT/HCPCS: 0241U-QW; 36415; 36600; 71045-TC-FY; 72128-TC; 72129-TC; 72131-TC; 72132-TC; 74176-TC; 76000-TC-FY; 76775-TC; 80048; 80053; 81003; 82248; 82550; 82553; 82803; 82962; 83605; 83735; 84100; 85025; 85027; 85610; 85651; 86140; 86850; 86900; 86901; 87040; 87070; 87086; 87186; 87205; 93970-TC; 94760; 97116-GP; 97161-GP; 99285-25; G0480; J0131; J0666; J0878; J1644; J3370; Q9967